=== PATIENT | female | born 1975 | race Caucasian/White ===

== ENCOUNTER 2019-11-12 16:08 | Emergency (ER) | payer MEDICAID, SELFPAY ==
[2019-11-12 16:14] VITALS: BP 151/83; PULSE 92; RESP 16; TEMP 36.7; O2SAT 100; BMI 18.6
[2019-11-12 16:20] VITALS: BP 121/81; PULSE 87; RESP 18; O2SAT 100
--- NOTE | 2019-11-12 16:30 | CTR_ITS ---
PROCEDURE INFORMATION: Exam: CT Abdomen And Pelvis With Contrast Exam date and time: 11/12/2019 4:33 PM Age: 44 years old Clinical indication: Abdominal pain; Localized; Lower; Prior surgery; Surgery type: Ileostomy; Additional info: Abd pain TECHNIQUE: Imaging protocol: Computed tomography of the abdomen and pelvis with intravenous contrast. Axial, coronal and sagittal reformatted images were created and reviewed. Radiation optimization: All CT scans at this facility use at least one of these dose optimization techniques: automated exposure control; mA and/or kV adjustment per patient size (includes targeted exams where dose is matched to clinical indication); or iterative reconstruction. Contrast material: OMNI 300; Contrast volume: 75 ml; Contrast route: IV; COMPARISON: CT abdomen pelvis w con* [id number] 11/07/2018 10:12 AM RADIATION DOSE METRICS: Total DLP: 468.34 mGy-cm FINDINGS: Lungs: Mild dependent atelectatic change at the lung bases. Liver: Mild hepatomegaly. Gallbladder and bile ducts: No radiodense gallstones. No biliary ductal dilatation. Pancreas: Unremarkable. Spleen: Unremarkable. Adrenals: Unremarkable. Kidneys and ureters: Subcentimeter low-density renal lesions bilaterally, measuring up to 4 mm, too small to characterize. Nonobstructing bilateral renal calculi. No hydronephrosis. Stomach and bowel: Evidence of prior partial colectomy with a right lower quadrant ileostomy and left lower quadrant mucous fistula. Appendix: Surgically absent. Intraperitoneal space: Indistinct adnexa and small nonspecific free pelvic fluid. No organized collection. No free air. Vasculature: Mild atherosclerotic disease. No aneurysm or dissection. Lymph nodes: No pathologically enlarged lymph nodes. Bladder: Mild circumferential urinary bladder wall thickening, likely secondary to underdistention. Reproductive: Unremarkable. Bones/joints: No acute osseous abnormality. Mild degenerative changes. Soft tissues: Diastasis of the rectus abdominus musculature with a large ventral abdominal wall defect. CT/CT abdomen pelvis w con* [id number] IMPRESSION: 1. Indistinct adnexa and small nonspecific free pelvic fluid. If there is clinical concern for acute gynecologic pathology, pelvic ultrasound would provide a more sensitive evaluation. 2. Mild circumferential urinary bladder wall thickening, likely secondary to underdistention. Correlate with urinalysis to exclude cystitis. 3. Additional findings, as above. COMMENTS: Consistent with the [employer]'s Incidental Findings Committee white paper (J Am Maxine Radiol 2018): Any incidental renal lesion less than 1.0 cm or classified as too small to characterize, or any incidental cystic renal lesion characterized as simple-appearing, is likely benign. No follow-up imaging is recommended for these lesions per consensus recommendations based on imaging criteria. Radiation Dose CTDIVOL = (mGy): DLP = 468.34 (mGy-cm)
[2019-11-12] MEDS: iohexol 300 mg/mL 100 mL Btl IV (16:50)
[2019-11-12] MEDS: sodium chloride 0.9% 1,000 ML 999 ML IV (17:02)
[2019-11-12] MEDS: ondansetron 2 mg/ML SDV 2 mL 4 MG IVP (17:05)
[2019-11-12 17:06] VITALS: RESP 18; O2SAT 99
[2019-11-12 17:06] LABS: Basophils # 0.1 10^3/uL (0.0-0.1); Basophils % 0.6 %; Eosinophils # 0.2 10^3/uL (0.0-0.8); Eosinophils % 2.7 %; Hemoglobin 12.6 g/dL (11.5-15.3); Lymphocytes # 2.2 10^3/uL (0.8-4.8); Lymphocytes % 25.7 %; Mean Corpuscular HGB Conc 31.5 g/dL (30.0-36.0); Mean Corpuscular Hemoglobin 31.7 pg (28.0-34.0); Mean Corpuscular Volume 100.5 fL (81-99); Mean Platelet Volume 11.7 fL (7.4-10.4); Monocytes # 0.4 10^3/uL (0.2-0.9); Neutrophils # 5.5 10^3/uL (1.8-7.7); Neutrophils % 65.8 %; Nucleated Red Blood Cells % 0 %; Platelet Count 118 10^3/cmm (130-400); Red Blood Count 3.98 10^6/uL (4.1-5.3); Red Cell Distribution Width 15.3 % (12.1-15.1); White Blood Count 8.4 10^3/uL (4.0-10.0)
[2019-11-12] MEDS: morphine 4 mg/mL SDV 1 mL IVP ×2 (17:06→18:51)
--- NOTE | 2019-11-12 17:20 | US_ITS ---
WS: [id number] TRANSABDOMINAL PELVIC ULTRASOUND HISTORY: free pelvic fluid COMPARISON: None available. Very limited evaluation of the pelvic structures. There is a moderate amount of free fluid in the pel vis which is mildly complex. No measurements have been performed. The adnexa poorly imaged. There is no fluid in Morison's pouch. US/US pelvic limited [id number] IMPRESSION: Moderate amount of complex free fluid in the pelvis. May be hemorrhagic or infe ctious.
[2019-11-12 17:24] LABS: Add Urine Microscopic? NO
[2019-11-12 17:25] LABS: Bilirubin Urine Neg (NEGATIVE); Blood Urine Neg (Negative); Glucose Urine UA Norm (Normal); Ketones Urine Negative (Negative); Leukocyte Esterase Urine Negative (Negative); Nitrate Urine Negative (Negative); Protein Urine Neg (Negative); Urine Appearance Clear (CLEAR); Urine Color Straw (Yellow); Urobilinogen Urine Norm (Negative); pH Urine 5 (5-7)
[2019-11-12 17:30] LABS: Alanine Aminotransferase 10 U/L (0-33); Albumin Level 3.8 g/dL (3.5-5.2); Alkaline Phosphatase 84 IU/L (35-105); Anion Gap 14.7 (5-19); Blood Urea Nitrogen 7 mg/dL (6-20); Calcium 8.6 mg/dL (8.5-10.5); Carbon Dioxide 24 mmol/L (22-29); Chloride 99 mmol/L (98-107); Glomerular Filtration Rate 108.1 mL/min (90-130); Glucose 131 mg/dL (65-115); Lipase 19 U/L (13-60); Osmolality Calculated 276 mOsm/kg (285-295); Potassium 3.7 mmol/L (3.5-5.1); Sodium 134 mmol/L (136-145); Total Bilirubin 0.2 mg/dL (0.15-1.2); Total Protein 5.8 g/dL (6.6-8.7)
[2019-11-12 17:31] LABS: Aspartate Amino Transferase 16 U/L (0-32)
--- NOTE | 2019-11-12 17:34 | W.ED.ABDPA2 ---
Documented by User: Brian Adams DO 11/13/19 06:13 HPI - Abdominal Pain General: Chief Complaint: Abdominal Pain Stated Complaint: ABD PAIN Time Seen by Provider: 11/12/19 16:15 History of Present Illness: HPI narrative: 44-year-old female female who comes in complaining of abdominal pain that began last night. Patient has a history of Crohn's had multiple abdominal surgeries she currently has an ileostomy when she has noticed a decreased output although she has not had any significant bloody output she will occasionally get small streaks of blood from the edges of the stoma that has not changed. She also has a open wound in the left lower quadrant she states as a result of her previous surgeries that has not healed she just keeps it covered does not leak any fecal matter but it does ooze serous drainage it has not had any purulent drainage. She is complaining of generalized abdominal pain and cramping she has a large area in the center of her abdomen where it appears her incision is dehisced in the past and healed by secondary intent. She complains of nausea with no vomiting. She denies any dysuria urgency or frequency or hematuria. She has no cough no fever. Associated Symptoms: Denies bloating, chills, coffee ground emesis, constipation, diarrhea, dysuria, fever(s), hematochezia, hematemesis, melena, nausea and vomiting Review of Systems Const: Denies: fever(s), chills, body aches, change in appetite, fatigue or malaise ENMT: Denies: throat pain, ear or mastoid pain, nasal discharge or nasal congestion Card: Denies: chest pain, edema, dyspnea on exertion or orthopnea Resp: Denies: dyspnea, productive cough or non-productive cough GI: Denies: abdominal pain, nausea, vomiting, hematemesis, coffee ground emesis, diarrhea, constipation, bloating, hematochezia or melena : Denies: flank pain, difficulty voiding, dysuria, urinary frequency or urinary urgency Skin/Breast: Denies: rash or pruritus PFSH ED PFSH: Medical History Bartholin's cyst Crohn's disease Ileostomy in place Surgical History History of appendectomy Hx of tonsillectomy Social History Smoking and tobacco status: current every day smoker Physical Exam Const: COMMON NORMALS: no acute distress GENERAL APPEARANCE: cooperative and comfortable ORIENTATION/CONSCIOUSNESS: Yes awake, Yes oriented to person, Yes oriented to place and Yes oriented to time HENMT: COMMON NORMALS: normocephalic, atraumatic, hearing grossly normal bilaterally, external ears normal, EAC's normal, TM's normal bilaterally, Normal nasal mucous membranes and turbinates present, moist oral mucous membranes and oropharynx normal HEAD & SCALP: normocephalic and atraumatic NOSE: Normal nasal mucous membranes and turbinates present EXTERNAL EAR: Yes external ears normal EXTERNAL AUDITORY CANAL: EAC's normal TYMPANIC MEMBRANE: TM's normal bilaterally Eye: COMMON NORMALS: Equal, round and reactive pupils present, EOMs intact bilaterally, conjunctivae normal and no scleral icterus CONJUNCTIVA: Yes conjunctivae normal PUPIL: Yes Equal, round and reactive pupils present Neck/C-Spine: COMMON NORMALS: full ROM, no lymphadenopathy, supple and no JVD Lymph: LYMPHATIC: no lymphadenopathy noted and no lymphedema noted Resp: COMMON NORMALS: normal respiratory effort, No retractions, No use of accessory muscles and clear to auscultation bilaterally AUSCULTATION: clear to auscultation bilaterally Cardio: COMMON NORMALS: no JVD, regular rate, regular rhythm and No murmurs present (Cardio) RATE: regular rate RHYTHM: regular rhythm GI: COMMON NORMALS: Soft to palpation and No hepatosplenomegaly present AUSCULTATION: Yes normoactive bowel sounds PALPATION: Yes Soft to palpation, Yes Tenderness to palpation present (GI), No Guarding due to palpation present (GI), No Rigid due to palpation, Yes No hepatosplenomegaly present, No Hernia present, No Palpable mass present, No Ascites present, No Rebound tenderness present and Yes Other GI palpation findings present (Scarring from what appears to be a dehisced midline abdominal incision that healed by secondary intent ileostomy in the right lower quadrant has no hematochezia or melena in the ostomy bag. In the left lower quadrant there is an open wound approximately 1 cm in diameter there is a bandage over it with some serous drainage no purulent drainage no pain with palpation of that area and cannot express any purulence with palpation) : EXTERNAL FEMALE EXAM: No Hernia present Extremity: COMMON NORMALS: normal to inspection, capillary refill normal, no clubbing, cyanosis or edema, no calf tenderness and no pedal edema Neuro: SENSORIUM/ORIENTATION: Yes oriented to person, Yes oriented to place and Yes oriented to time Skin: COMMON NORMALS: no rashes or lesions noted GENERAL SKIN EXAM: no rashes or lesions noted Course Vital Signs: Vital signs: Vital Signs Temperature 98.1 F 11/12/19 16:14 Pulse Rate 76 11/12/19 19:47 Respiratory Rate 16 11/12/19 19:47 Blood Pressure 89/64 11/12/19 19:47 Pulse Oximetry 96 11/12/19 19:47 MDM - Abdominal Pain MDM Narrative: Medical decision making narrative: Patient initially seen history and physical done initial labs ordered as well as pain medications and nausea medications. CT showed small amount of free fluid a ultrasound has been ordered care turned over to Dr. Potts at change of shift see his notes for final assessment and disposition Lab Data: Labs: Lab Results 11/12/19 11/12/19 11/12/19 Range/Units 16:57 16:57 17:03 WBC 8.4 (4.0-10.0) 10^3/ uL RBC 3.98 L (4.1-5.3) 10^6/u L Hgb 12.6 (11.5-15.3) g/dL Hct 40.0 (37.0-47.0) % MCV 100.5 H (81-99) fL MCH 31.7 (28.0-34.0) pg MCHC 31.5 (30.0-36.0) g/dL RDW 15.3 H (12.1-15.1) % Plt Count 118 L (130-400) 10^3/c mm MPV 11.7 H (7.4-10.4) fL Neut % (Auto) 65.8 % Lymph % (Auto) 25.7 % [place] % (Auto) 5.0 % Eos % (Auto) 2.7 % Baso % (Auto) 0.6 % Neut # (Auto) 5.5 (1.8-7.7) 10^3/u L Lymph # (Auto) 2.2 (0.8-4.8) 10^3/u L [place] # (Auto) 0.4 (0.2-0.9) 10^3/u L Eos # (Auto) 0.2 (0.0-0.8) 10^3/u L Baso # (Auto) 0.1 (0.0-0.1) 10^3/u L Nucleated RBC % (a uto) 0 % Nucleated RBCs # 0.0 /100WBC Sodium 134 L (136-145) mmol/L Potassium 3.7 (3.5-5.1) mmol/L Chloride 99 (98-107) mmol/L Carbon Dioxide 24 (22-29) mmol/L Anion Gap 14.7 (5-19) BUN 7 (6-20) mg/dL Creatinine 0.6 (0.5-0.9) mg/dL GFR Calculation 108.1 (90-130) mL/min Glucose 131 H (65-115) mg/dL Calculated Osmolal ity 276 L (285-295) mOsm/k g Calcium 8.6 (8.5-10.5) mg/dL Total Bilirubin 0.2 (0.15-1.2) mg/dL AST 16 (0-32) U/L ALT 10 (0-33) U/L Alkaline Phosphata se 84 (35-105) IU/L Total Protein 5.8 L (6.6-8.7) g/dL Albumin 3.8 (3.5-5.2) g/dL Globulin 2.0 (1.3-4.6) g/dL Lipase 19 (13-60) U/L Urine Color Straw (Yellow) Urine Appearance Clear (CLEAR) Urine pH 5 (5-7) Ur Specific Gravit y 1.010 (1.005-1.030) Urine Protein Neg (Negative) Urine Glucose (UA) Norm (Normal) Urine Ketones Negative (Negative) Urine Blood Neg (Negative) Urine Nitrate Negative (Negative) Urine Bilirubin Neg (NEGATIVE) Urine Urobilinogen Norm (Negative) mg/dL Ur Leukocyte Michelle ase Negative (Negative) Discharge Plan Discharge Patient Disposition: Home, Self-Care Clinical Impression: Abdominal pain Qualifiers: Abdominal location: generalized Qualified Code(s): R10.84 - Generalized abdominal pain Condition: Stable Prescriptions: [place] 5-325 mg tablet 1 tab PO Q6H PRN (Reason: pain) Qty: 14 RF: 0 Zofran 4 mg tablet 4 mg PO QID PRN (Reason: nausea and vomiting) Qty: 14 RF: 0 prednisone 50 mg tablet 50 mg PO DAILY Qty: 5 RF: 0 No Action clonazepam 0.5 mg Tablet 0.5 mg PO BID PRN (Reason: Anxiety) RF: 0 Tylenol Extra Strength 500 mg Tablet 1,000 mg PO PRN RF: 0 ProAir HFA 90 mcg/actuation Hfa Aerosol Inhaler 2 puff INHALATION QID PRN (Reason: Shortness Of Breath) RF: 0 Lexapro 20 mg Tablet 20 mg PO DAILY RF: 0 Multi Vitamin 9 mg iron/15 mL Liquid See Rx Instructions .ROUTE .COMPLEX RF: 0 Discharge Orders: Discharge Order (Routine); Ordered 11/12/19 Ordered By: Yfn Potts Referrals: Cesilia Schneider MD [Primary Care Provider] - Discharge Diet: Advance as tolerated Discharge Activity: Resume usual activity Patient Instructions: Abdominal Pain (ED) Discharge Date/Time: 11/12/19 19:49 Coding Level of Care Code ED [employer] for Chg Fwd Documented by User: Yfn Potts MD 11/12/19 19:38 HPI - Abdominal Pain General: Chief Complaint: Abdominal Pain Stated Complaint: ABD PAIN Time Seen by Provider: 11/12/19 16:15 [facility] ED PFSH: Medical History Bartholin's cyst Crohn's disease Ileostomy in place Surgical History History of appendectomy Hx of tonsillectomy Social History Smoking and tobacco status: current every day smoker Course Vital Signs: Vital signs: Vital Signs Temperature 98.1 F 11/12/19 16:14 Pulse Rate 76 11/12/19 19:47 Respiratory Rate 16 11/12/19 19:47 Blood Pressure 89/64 11/12/19 19:47 Pulse Oximetry 96 11/12/19 19:47 MDM - Abdominal Pain MDM Narrative: Medical decision making narrative: I took patient over from Dr. Benavides to follow-up with a pelvic ultrasound. Ultrasound here showed slight free fluid no other findings. Her CT scan showed no acute findings besides the slight free fluid. Her pain is much improved abdominal exam at discharge is benign. With blood work here is normal. She does have a history of Crohn's we will place her on a steroid burst along with pain meds. She is to follow-up with her GI physician as soon as possible and return to the ER if worsening. Lab Data: Labs: Lab Results 11/12/19 11/12/19 11/12/19 Range/Units 16:57 16:57 17:03 WBC 8.4 (4.0-10.0) 10^3/ uL RBC 3.98 L (4.1-5.3) 10^6/u L Hgb 12.6 (11.5-15.3) g/dL Hct 40.0 (37.0-47.0) % MCV 100.5 H (81-99) fL MCH 31.7 (28.0-34.0) pg MCHC 31.5 (30.0-36.0) g/dL RDW 15.3 H (12.1-15.1) % Plt Count 118 L (130-400) 10^3/c mm MPV 11.7 H (7.4-10.4) fL Neut % (Auto) 65.8 % Lymph % (Auto) 25.7 % [place] % (Auto) 5.0 % Eos % (Auto) 2.7 % Baso % (Auto) 0.6 % Neut # (Auto) 5.5 (1.8-7.7) 10^3/u L Lymph # (Auto) 2.2 (0.8-4.8) 10^3/u L [place] # (Auto) 0.4 (0.2-0.9) 10^3/u L Eos # (Auto) 0.2 (0.0-0.8) 10^3/u L Baso # (Auto) 0.1 (0.0-0.1) 10^3/u L Nucleated RBC % (a uto) 0 % Nucleated RBCs # 0.0 /100WBC Sodium 134 L (136-145) mmol/L Potassium 3.7 (3.5-5.1) mmol/L Chloride 99 (98-107) mmol/L Carbon Dioxide 24 (22-29) mmol/L Anion Gap 14.7 (5-19) BUN 7 (6-20) mg/dL Creatinine 0.6 (0.5-0.9) mg/dL GFR Calculation 108.1 (90-130) mL/min Glucose 131 H (65-115) mg/dL Calculated Osmolal ity 276 L (285-295) mOsm/k g Calcium 8.6 (8.5-10.5) mg/dL Total Bilirubin 0.2 (0.15-1.2) mg/dL AST 16 (0-32) U/L ALT 10 (0-33) U/L Alkaline Phosphata se 84 (35-105) IU/L Total Protein 5.8 L (6.6-8.7) g/dL Albumin 3.8 (3.5-5.2) g/dL Globulin 2.0 (1.3-4.6) g/dL Lipase 19 (13-60) U/L Urine Color Straw (Yellow) Urine Appearance Clear (CLEAR) Urine pH 5 (5-7) Ur Specific Gravit y 1.010 (1.005-1.030) Urine Protein Neg (Negative) Urine Glucose (UA) Norm (Normal) Urine Ketones Negative (Negative) Urine Blood Neg (Negative) Urine Nitrate Negative (Negative) Urine Bilirubin Neg (NEGATIVE) Urine Urobilinogen Norm (Negative) mg/dL Ur Leukocyte Michelle ase Negative (Negative) Imaging Data ^: CT Abd/Pel: Attestation: I personally reviewed and interpreted this imaging study as follows: Radiologist's impression: [address] [address] [address] Scan Report Signed Patient: Stephani Fitzgerald Unit #: [id number] : 1975 Age/Sex: 44 / F ADM Date: 11/12/19 Loc: ER Room/Bed: Attending Dr: Ordering Provider/Ordering MD: Brian Adams DO Date of Service: 11/12/19 Procedure(s): CT abdomen pelvis w con* [id number] Accession Number(s): [id number] Report Number: [id number] PROCEDURE INFORMATION: Exam: CT Abdomen And Pelvis With Contrast Exam date and time: 11/12/2019 4:33 PM Age: 44 years old Clinical indication: Abdominal pain; Localized; Lower; Prior surgery; Surgery type: Ileostomy; Additional info: Abd pain TECHNIQUE: Imaging protocol: Computed tomography of the abdomen and pelvis with intravenous contrast. Axial, coronal and sagittal reformatted images were created and reviewed. Radiation optimization: All CT scans at this facility use at least one of these dose optimization techniques: automated exposure control; mA and/or kV adjustment per patient size (includes targeted exams where dose is matched to clinical indication); or iterative reconstruction. Contrast material: OMNI 300; Contrast volume: 75 ml; Contrast route: IV; COMPARISON: CT abdomen pelvis w con* [id number] 11/07/2018 10:12 AM RADIATION DOSE METRICS: Total DLP: 468.34 mGy-cm FINDINGS: Lungs: Mild dependent atelectatic change at the lung bases. Liver: Mild hepatomegaly. Gallbladder and bile ducts: No radiodense gallstones. No biliary ductal dilatation. Pancreas: Unremarkable. Spleen: Unremarkable. Adrenals: Unremarkable. Kidneys and ureters: Subcentimeter low-density renal lesions bilaterally, measuring up to 4 mm, too small to characterize. Nonobstructing bilateral renal calculi. No hydronephrosis. Stomach and bowel: Evidence of prior partial colectomy with a right lower quadrant ileostomy and left lower quadrant mucous fistula. Appendix: Surgically absent. Intraperitoneal space: Indistinct adnexa and small nonspecific free pelvic fluid. No organized collection. No free air. Vasculature: Mild atherosclerotic disease. No aneurysm or dissection. Lymph nodes: No pathologically enlarged lymph nodes. Bladder: Mild circumferential urinary bladder wall thickening, likely secondary to underdistention. Reproductive: Unremarkable. Bones/joints: No acute osseous abnormality. Mild degenerative changes. Soft tissues: Diastasis of the rectus abdominus musculature with a large ventral abdominal wall defect. CT/CT abdomen pelvis w con* [id number] IMPRESSION: 1. Indistinct adnexa and small nonspecific free pelvic fluid. If there is clinical concern for acute gynecologic pathology, pelvic ultrasound would provide a more sensitive evaluation. 2. Mild circumferential urinary bladder wall thickening, likely secondary to underdistention. Correlate with urinalysis to exclude cystitis. 3. Additional findings, as above. Discharge Plan Discharge Patient Disposition: Home, Self-Care Clinical Impression: Abdominal pain Qualifiers: Abdominal location: generalized Qualified Code(s): R10.84 - Generalized abdominal pain Condition: Stable Prescriptions: [place] 5-325 mg tablet 1 tab PO Q6H PRN (Reason: pain) Qty: 14 RF: 0 Zofran 4 mg tablet 4 mg PO QID PRN (Reason: nausea and vomiting) Qty: 14 RF: 0 prednisone 50 mg tablet 50 mg PO DAILY Qty: 5 RF: 0 No Action clonazepam 0.5 mg Tablet 0.5 mg PO BID PRN (Reason: Anxiety) RF: 0 Tylenol Extra Strength 500 mg Tablet 1,000 mg PO PRN RF: 0 ProAir HFA 90 mcg/actuation Hfa Aerosol Inhaler 2 puff INHALATION QID PRN (Reason: Shortness Of Breath) RF: 0 Lexapro 20 mg Tablet 20 mg PO DAILY RF: 0 Multi Vitamin 9 mg iron/15 mL Liquid See Rx Instructions .ROUTE .COMPLEX RF: 0 Discharge Orders: Discharge Order (Routine); Ordered 11/12/19 Ordered By: Yfn Potts Referrals: Cesilia Schneider MD [Primary Care Provider] - Discharge Diet: Advance as tolerated Discharge Activity: Resume usual activity Patient Instructions: Abdominal Pain (ED) Discharge Date/Time: 11/12/19 19:49 Coding Level of Care Code ED [employer] Manager for Chg Yadi
[2019-11-12 18:51] VITALS: RESP 16
[2019-11-12 19:47] VITALS: BP 89/64; PULSE 76; RESP 16; O2SAT 96
== END 2019-11-12 19:49 | disposition home or self-care (01) ==
PROVIDERS: Family Medicine; Emergency Provider Emergency Medicine; PCP Internal Medicine
DX: R10.84 Generalized abdominal pain (principal); F17.210 Nicotine dependence, cigarettes, uncomplicated
CPT/HCPCS: 12345; 74177; 76857; 80053; 81003; 83690; 85025; 96361; 96374; 96375; 96376; 99283; J2270; J2405; J7030; Q9967

== ENCOUNTER 2020-04-20 16:50 | Emergency (ER) | payer MEDICAID, SELFPAY ==
[2020-04-20 17:16] VITALS: BP 90/53; PULSE 75; RESP 16; TEMP 36.4; O2SAT 95; BMI 21.2
--- NOTE | 2020-04-20 19:31 | W.ED.ABDPA2 ---
HPI - Abdominal Pain General: Chief Complaint: Abdominal Pain Stated Complaint: INFECTED ILEOSTOMY Time Seen by Provider: 04/20/20 19:21 Source: patient and EMS Mode of arrival: EMS Limitations: no limitations History of Present Illness: HPI narrative: 44-year-old female who has a history of Crohn's disease and has a ostomy. She is also had a chronic wound to her left lower abdomen since 2016. States today she started having a slight drainage to it. She denies any fever. Denies any worsening or improving factors. Denies any fever. Denies any vomiting. Associated Symptoms: Denies chills, diarrhea, dysuria, fever(s), nausea and vomiting Review of Systems Const: Denies: fever(s), chills, body aches or change in appetite Eyes: Denies: blurry vision or eye discomfort ENMT: Denies: throat pain or dental pain Card: Denies: chest pain Resp: Denies: dyspnea GI: Denies: abdominal pain, nausea, vomiting or diarrhea : Denies: dysuria Musc: Denies: neck pain or back pain Skin/Breast: Denies: rash Neuro: Denies: headache(s) Psych: Denies: depression Rc/Lymph: Denies: easy bruising All/Imm: Denies: urticaria PFSH ED PFSH: Medical History (Updated 04/20/20 @ 20:16 by Yfn Potts MD) Bartholin's cyst Crohn's disease Ileostomy in place Surgical History History of appendectomy Hx of tonsillectomy Social History Smoking and tobacco status: current every day smoker Physical Exam Const: COMMON NORMALS: no acute distress, patient oriented x3 and healthy appearing HENMT: COMMON NORMALS: normocephalic and atraumatic HEAD & SCALP: normocephalic and atraumatic Eye: COMMON NORMALS: Equal, round and reactive pupils present and EOMs intact bilaterally PUPIL: Yes Equal, round and reactive pupils present Neck/C-Spine: COMMON NORMALS: full ROM and supple Chest: COMMONS NORMALS: normal inspection of the chest and normal palpation of entire chest wall Resp: COMMON NORMALS: normal respiratory effort, No retractions, No use of accessory muscles and clear to auscultation bilaterally AUSCULTATION: clear to auscultation bilaterally Cardio: COMMON NORMALS: regular rate, regular rhythm and No murmurs present (Cardio) RATE: regular rate RHYTHM: regular rhythm GI: COMMON NORMALS: Soft to palpation, non-tender and no masses PALPATION: Yes Soft to palpation OTHER: Small nickel size wound to left lower abdomen with a very slight drainage to it. No foul smell at this time. No erythema Extremity: COMMON NORMALS: normal to inspection and full ROM Neuro: COMMON NORMALS: patient oriented x3, moves all extremities and no focal motor deficits Psych: COMMON NORMALS: mental status grossly normal, Normal thought process present and cooperative THOUGHT PROCESS: Normal thought process present Skin: COMMON NORMALS: no rashes or lesions noted and no wounds GENERAL SKIN EXAM: no rashes or lesions noted Course Vital Signs: Vital signs: Vital Signs Temperature 97.9 F 04/20/20 19:39 Pulse Rate 75 04/20/20 17:16 Respiratory Rate 18 04/20/20 19:39 Blood Pressure 124/73 04/20/20 19:39 Pulse Oximetry 99 04/20/20 19:39 MDM - Abdominal Pain MDM Narrative: Medical decision making narrative: Stephani presents here with a chronic abdominal wound does have some slight drainage. Patient has no signs of any serious infection at this time. Patient's blood count here is normal. We will place her on Bactrim and she is to follow-up with wound care. She is to return if worsening. She understands and agrees to plan. Lab Data: Labs: Lab Results 04/20/20 04/20/20 04/20/20 Range/Units 19:47 19:47 19:47 WBC 9.3 (4.0-10.0) 10^3/ uL RBC 4.79 (4.1-5.3) 10^6/u L Hgb 15.4 H (11.5-15.3) g/dL Hct 47.6 H (37.0-47.0) % MCV 99.4 H (81-99) fL MCH 32.2 (28.0-34.0) pg MCHC 32.4 (30.0-36.0) g/dL RDW 13.3 (12.1-15.1) % Plt Count 172 (130-400) 10^3/c mm MPV 10.9 H (7.4-10.4) fL Neut % (Auto) 78.8 % Lymph % (Auto) 18.6 % [place] % (Auto) 1.8 % Eos % (Auto) 0.1 % Baso % (Auto) 0.3 % Neut # (Auto) 7.30 (1.8-7.7) 10^3/u L Lymph # (Auto) 1.7 (0.8-4.8) 10^3/u L [place] # (Auto) 0.2 (0.2-0.9) 10^3/u L Eos # (Auto) 0.0 (0.0-0.8) 10^3/u L Baso # (Auto) 0.0 (0.0-0.1) 10^3/u L Nucleated RBC % (a uto) 0 % Nucleated RBCs # 0.0 /100WBC Sodium 143 (136-145) mmol/L Potassium 3.9 (3.5-5.1) mmol/L Chloride 106 (98-107) mmol/L Carbon Dioxide 23 (22-29) mmol/L Anion Gap 17.9 (5-19) BUN 9 (6-20) mg/dL Creatinine 0.6 (0.5-0.9) mg/dL GFR Calculation 108.1 (90-130) mL/min Glucose 92 (65-115) mg/dL Calculated Osmolal ity 294 (285-295) mOsm/k g Calcium 9.8 (8.5-10.5) mg/dL Total Bilirubin 0.2 (0.15-1.2) mg/dL AST 21 (0-32) U/L ALT 15 (0-33) U/L Alkaline Phosphata se 113 H (35-105) IU/L Total Protein 7.6 (6.6-8.7) g/dL Albumin 4.7 (3.5-5.2) g/dL Globulin 2.9 (1.3-4.6) g/dL HCG, Qual Negative (Negative) Discharge Plan Discharge Patient Disposition: Home Clinical Impression: Open abdominal wall wound Qualifiers: Encounter type: initial encounter Qualified Code(s): S31.109A - Unspecified open wound of abdominal wall, unspecified quadrant without penetration into peritoneal cavity, initial encounter Condition: Stable Prescriptions: New Bactrim DS 800-160 mg tablet 1 tab PO BID 10 Days Qty: 20 RF: 0 No Action clonazepam 0.5 mg Tablet 0.5 mg PO BID PRN (Reason: Anxiety) RF: 0 Tylenol Extra Strength 500 mg Tablet 1,000 mg PO PRN RF: 0 ProAir HFA 90 mcg/actuation Hfa Aerosol Inhaler 2 puff INHALATION QID PRN (Reason: Shortness Of Breath) RF: 0 Lexapro 20 mg Tablet 20 mg PO DAILY RF: 0 Multi Vitamin 9 mg iron/15 mL Liquid See Rx Instructions .ROUTE .COMPLEX RF: 0 [place] 5-325 mg tablet 1 tab PO Q6H PRN (Reason: pain) Qty: 14 RF: 0 Zofran 4 mg tablet 4 mg PO QID PRN (Reason: nausea and vomiting) Qty: 14 RF: 0 prednisone 50 mg tablet 50 mg PO DAILY Qty: 5 RF: 0 Discharge Orders: Discharge Order (Routine); Ordered 04/20/20 Ordered By: Yfn Potts Referrals: Cesilia Schneider MD [Primary Care Provider] - 1-3 days Discharge Diet: Advance as tolerated Discharge Activity: Resume usual activity Patient Instructions: Wound Care (General) Coding Level of Care Code ED Overhead Cleaner for Chg Fwd Exam Comprehensive
[2020-04-20 19:39] VITALS: BP 124/73; RESP 18; TEMP 36.6; O2SAT 99
[2020-04-20] MEDS: sodium chloride 0.9% 1,000 ML 999 ML IV (19:51)
[2020-04-20 19:52] LABS: Basophils % 0.3 %; Eosinophils % 0.1 %; Hematocrit 47.6 % (37.0-47.0); Hemoglobin 15.4 g/dL (11.5-15.3); Lymphocytes # 1.7 10^3/uL (0.8-4.8); Lymphocytes % 18.6 %; Mean Corpuscular HGB Conc 32.4 g/dL (30.0-36.0); Mean Corpuscular Hemoglobin 32.2 pg (28.0-34.0); Mean Corpuscular Volume 99.4 fL (81-99); Mean Platelet Volume 10.9 fL (7.4-10.4); Monocytes # 0.2 10^3/uL (0.2-0.9); Monocytes % 1.8 %; Neutrophils % 78.8 %; Nucleated Red Blood Cells % 0 %; Platelet Count 172 10^3/cmm (130-400); Red Blood Count 4.79 10^6/uL (4.1-5.3); Red Cell Distribution Width 13.3 % (12.1-15.1); White Blood Count 9.3 10^3/uL (4.0-10.0)
[2020-04-20 20:12] LABS: Alanine Aminotransferase 15 U/L (0-33); Albumin Level 4.7 g/dL (3.5-5.2); Alkaline Phosphatase 113 IU/L (35-105); Anion Gap 17.9 (5-19); Aspartate Amino Transferase 21 U/L (0-32); Blood Urea Nitrogen 9 mg/dL (6-20); Calcium 9.8 mg/dL (8.5-10.5); Carbon Dioxide 23 mmol/L (22-29); Chloride 106 mmol/L (98-107); Creatinine Clr Calc Pharmacy 95.5295; Globulin 2.9 g/dL (1.3-4.6); Glomerular Filtration Rate 108.1 mL/min (90-130); Glucose 92 mg/dL (65-115); Osmolality Calculated 294 mOsm/kg (285-295); Potassium 3.9 mmol/L (3.5-5.1); Sodium 143 mmol/L (136-145); Total Bilirubin 0.2 mg/dL (0.15-1.2); Total Protein 7.6 g/dL (6.6-8.7)
[2020-04-20 20:15] LABS: HCG, Serum Qual Negative (Negative)
[2020-04-20] MEDS: sulfamethoxazole-trimeth DS 160-800 mg Tablet 1 TAB PO (20:33)
[2020-04-20 20:34] VITALS: RESP 18; O2SAT 99
[2020-04-20] MEDS: morphine 4 mg/mL SDV 1 mL IVP (20:34)
[2020-04-20 20:48] VITALS: BP 94/63; PULSE 80; RESP 17; O2SAT 98
--- NOTE | 2020-04-21 09:01 | DCPLANNER ---
talent acquisition project manager had message to schedule a follow up appointment for patient with Wound Care. talent acquisition project manager called Wound Care, spoke with Debora, a follow up appointment was scheduled for Monday, April 27, 2020 at 8:30 with Krystle. talent acquisition project manager called patient to give patient appointment information. talent acquisition project manager was unable to speak with patient at this time, a voicemail was left for patient to return rehabilitation caseworker phone call for appointment information. talent acquisition project manager will continue to try and contact patient with appointment information.
--- NOTE | 2020-04-30 15:36 | DCPLANNER ---
Patient had a follow up appointment scheduled for 04.27.20 with Wound Care - appointment was rescheduled.
== END 2020-04-20 20:48 | disposition home or self-care (01) ==
PROVIDERS: Physician Assistant; Emergency Provider Emergency Medicine; PCP Internal Medicine
DX: S31.109A Unspecified open wound of abdominal wall, unspecified quadrant without penetration into peritoneal cavity, initial encounter (principal); F17.210 Nicotine dependence, cigarettes, uncomplicated; Z93.2 Ileostomy status; X58.XXXA Exposure to other specified factors, initial encounter
CPT/HCPCS: 12345; 80053; 84703; 85025; 96361; 96374; 96375; 99283; J2270; J7030

== ENCOUNTER 2020-11-20 11:43 | Inpatient (IN) | payer MEDICAID, SELFPAY ==
[2020-11-20 11:54] VITALS: BP 132/99; PULSE 138; RESP 18; TEMP 37; O2SAT 96; BMI 23.2
--- NOTE | 2020-11-20 12:08 | CT_ITS ---
WS: [id number] CT ABDOMEN PELVIS TECHNIQUE: Contrast-enhanced CT of the abdomen and pelvis with coronal and sagittal reformatted image s. CLINICAL INFORMATION: ulcerative colitis with ostomy. chronic abd pain COMPARISON: CT November 12, 2019 DLP: 985.[address] scans at [facility] use at least one of these dose optimization techniques: automat ed exposure control; mA and/or kV adjustment per patient size (includes targeted exams where dose is matched to clinical indication); or iterative reconstruction. FINDINGS: Normal liver. Normal portal vein and splenic vein. Normal spleen. Normal GE junction. Lung bases are well aerated. Normal pancreas. Adrenal glands are normal. Normal renal parenchymal enhancement. No hy dronephrosis. Tiny bilateral renal lesions likely renal cysts but too small to characterize. Urine distended bladder. Small amount of free fluid in the pelvis. Bilateral ovarian cysts. Lobulated left ovary and cyst measures 1.5 cm. 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 No evidence of small bowel obstruction. Prior colectomy. Right lower quadrant ileostomy appears patent. No evidence of obstruction. Left lowe r quadrant colostomy. No evidence of obstruction. CT/CT abdomen pelvis w con* [id number] IMPRESSION: 1. No evidence of small or large bowel obstruction. 2. Normal-appearing ileostomy in the right lower quadrant colostomy in the lef t lower quadrant. No evidence of obstruction. 3. Prior colectomy. 4. Small amount of free fluid in the pelvis. Small bilateral ovarian cysts. La rgest in the left measures 1.5 cm. 5. Urine distended bladder. 6. Rectus muscle diastases with ectatic anterior abdominal wall. This is uncha nged from previous. 7. No other significant findings.
--- NOTE | 2020-11-20 12:13 | ED_ITS ---
HPI - Psych General: Chief Complaint: Psychiatric Symptoms Stated Complaint: SI Time Seen by Provider: 11/20/20 11:53 History of Present Illness: HPI Narrative: The patient is a 45-year-old female with past medical history of borderline personality disorder and depression who comes to the ER complaining of suicidal ideations. She says she has been feeling more depressed lately and felt like cutting her arm still she bleeds to yesterday and today. Her sister brought her in to get her help. She has not injured herself. The patient has ulcerative colitis with history of colectomy and ileostomy in the right lower quadrant. She also has a left abd ominal wound which is chronic and not bothering her today. She previously took an SSRI but quit taking it on her own. She admits to alcohol abuse. Denies withdrawal symptoms. She has chronic seizure disorder as well. 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 MD complaint: suicidal ideation and feels depressed Duration: constant History of same: Yes Relieving factors: none Context: recent alcohol abuse, not taking psychiatric medications and significant life stressor Associated psychiatric symptoms: depression and suicidal ideation Associated symptoms: Reports depression and suicidal ideation If self harm: admits thoughts of self harm and has plan Review of Systems General: Reports: 10 or more systems reviewed and unremarkable except in HPI and below Const: Denies: fatigue Eyes: Denies: change in vision, blurry vision or eye redness ENMT: Denies: throat pain, swelling of lips/tongue, ear or mastoid pain or nasal congestion Card: Denies: chest pain, palpitations, irregular heart rhythm, edema, dyspnea on exertion or orthopnea Resp: Denies: dyspnea, productive cough or non-productive cough GI: Reports: abdominal pain (Mild chronic abdominal pain related to her ileostomy); Denies: diarrhea or GI cramping : Denies: flank pain, difficulty voiding, urinary frequency or urinary urgency Musc: Denies: neck pain, back pain, extremity pain, joint pain, joint redness, limited range of motion or muscle weakness Skin/Breast: Denies: rash, pruritus, erythema, skin pain or skin tenderness Neuro: Denies: headache(s), numbness in extremities, weakness in extremities, sensory changes, difficulty walking, dizziness, confusion or Slurred speech present Psych: Reports: depression and suicidal ideation Endo: Denies: polyuria All/Imm: Denies: urticaria, throat swelling or tongue swelling PFSH ED PFSH: Medical History (Updated 11/20/20 @ 15:44 by Clemente Da Silva MD) Bartholin's cyst Crohn's disease Ileostomy in place Surgical History History of appendectomy Hx of tonsillectomy Social History Smoking and tobacco status: current every day smoker Physical Exam Const: COMMON NORMALS: no acute distress, average body habitus, patient oriented x3, no limitations, alert and well nourished GENERAL APPEARANCE: cooperative, comfortable, well kempt and well developed ORIENTATION/CONSCIOUSNESS: Yes awake, Yes oriented to person, Yes oriented to place and Yes oriented to time OTHER: Depressed and tearful HENMT: COMMON NORMALS: normocephalic, external ears normal and Normal external nose present HEAD & SCALP: normal to inspection and normocephalic NOSE: Normal external nose present EXTERNAL EAR: Yes external ears normal MOUTH: Normal oral and palatal mucosa present THROAT: posterior oropharynx normal Eye: COMMON NORMALS: Equal, round and reactive pupils present and EOMs intact bilaterally GENERAL EYE: appearance normal, both eyes and all related structures PUPIL: Yes Equal, round and reactive pupils present Neck/C-Spine: COMMON NORMALS: full ROM, no lymphadenopathy, no meningeal signs and no JVD GENERAL: Yes normal visual inspection Lymph: LYMPHATIC: no lymphadenopathy noted Chest: COMMONS NORMALS: normal inspection of the chest and normal palpation of entire chest wall Resp: COMMON NORMALS: normal respiratory effort, No retractions, No use of accessory muscles, clear to auscultation bilaterally and percussion normal EFFORT & INSPECTION: Yes able to speak in complete sentences AUSCULTATION: clear to auscultation bilaterally PERCUSSION: percussion normal Cardio: COMMON NORMALS: no JVD, regular rate, regular rhythm, S1 normal heart sound present, S2 normal heart sound present and Peripheral pulses 2+ throughout RATE: regular rate RHYTHM: regular rhythm HEART SOUNDS: S1 normal heart sound present and S2 normal heart sound present PERIPHERAL PULSES: Peripheral pulses 2+ throughout GI: COMMON NORMALS: Normal to inspection, nondistended, normoactive bowel sounds present, Soft to palpation and no masses INSPECTION: Yes normal to inspection PALPATION: Yes Soft to palpation OTHER: The patient has a right lower quadrant ileostomy which has mild associated tenderness. She says this is her normal amount of tenderness. Left lower quadrant small 2 cm wound which is chronic. Not draining or tender. : COMMON NORMALS: Yes no CVA tenderness BLADDER/KIDNEY EXAM: Yes no CVA tenderness Back/Pelvis: COMMON NORMALS: no CVA tenderness, thoracic and lumbar spine normal to inspection, no thoracic nor lumbar tenderness and thoraco-lumbar ROM normal Extremity: COMMON NORMALS: normal to inspection, full ROM, capillary refill normal, no joint enlargement and no pedal edema GENERAL: Yes normal exam except as noted Neuro: COMMON NORMALS: patient oriented x3, CN's II-XII intact bilaterally, moves all extremities, no focal motor deficits, no sensory deficits noted and gait normal SENSORIUM/ORIENTATION: Yes alert, Yes oriented to person, Yes oriented to place and Yes oriented to time MENINGEAL SIGNS: Yes no meningeal signs Psych: COMMON NORMALS: mental status grossly normal, Normal thought process present, cooperative, normal affect and speech normal APPEARANCE: Yes well kempt ATTITUDE: Yes calm SPEECH: Yes normal speech THOUGHT PROCESS: Normal thought process present Skin: COMMON NORMALS: no rashes or lesions noted GENERAL SKIN EXAM: no rashes or lesions noted Course Vital Signs: Vital signs: Vital Signs Temperature 98.6 F 11/20/20 11:54 Pulse Rate 138 H 11/20/20 11:54 Respiratory Rate 18 11/20/20 11:54 Blood Pressure 132/99 11/20/20 11:54 Pulse Oximetry 96 11/20/20 11:54 MDM - Psych MDM Narrative: Medical decision making narrative: The patient is a 45-year-old female with borderline personality disorder who comes to the ER complaining of suicidal ideations with plan to cut herself. She has cut herself in the past many times and has many scars on both of her arms. She tried to leave so I filled out the 96-hour hold paperwork. Discussed with Dr. Chapman who accepts for admission Lab Data: Labs: Lab Results 11/20/20 11/20/20 11/20/20 Range/Units 12:30 12:30 12:51 WBC 11.3 H (4.0-10.0) 10^3/ uL RBC 4.82 (4.1-5.3) 10^6/u L Hgb 15.8 H (11.5-15.3) g/dL Hct 46.7 (37.0-47.0) % MCV 96.9 (81-99) fL MCH 32.8 (28.0-34.0) pg MCHC 33.8 (30.0-36.0) g/dL RDW 12.8 (12.1-15.1) % Plt Count 247 (130-400) 10^3/c mm MPV 9.7 (7.4-10.4) fL Neut % (Auto) 58.1 % Lymph % (Auto) 33.8 % [place] % (Auto) 5.0 % Eos % (Auto) 2.4 % Baso % (Auto) 0.4 % Neut # (Auto) 6.57 (1.8-7.7) 10^3/u L Lymph # (Auto) 3.8 (0.8-4.8) 10^3/u L [place] # (Auto) 0.6 (0.2-0.9) 10^3/u L Eos # (Auto) 0.3 (0.0-0.8) 10^3/u L Baso # (Auto) 0.0 (0.0-0.1) 10^3/u L Nucleated RBC % (a uto) 0 % Nucleated RBCs # 0.0 /100WBC Sodium 140 (136-145) mmol/L Potassium 3.8 (3.5-5.1) mmol/L Chloride 101 (98-107) mmol/L Carbon Dioxide 17 L (22-29) mmol/L Anion Gap 25.8 H (5-19) BUN 9 (6-20) mg/dL Creatinine 0.4 L (0.5-0.9) mg/dL GFR Calculation 171.8 H (90-130) mL/min Glucose 101 (65-115) mg/dL Calculated Osmolal ity 289 (285-295) mOsm/k g Calcium 9.3 (8.5-10.5) mg/dL Total Bilirubin 0.3 (0.15-1.2) mg/dL AST 27 (0-32) U/L ALT 21 (0-33) U/L Alkaline Phosphata se 136 H (35-105) IU/L Total Protein 7.9 (6.6-8.7) g/dL Albumin 4.8 (3.5-5.2) g/dL Globulin 3.1 (1.3-4.6) g/dL TSH 1.48 (0.27-4.20) uIU/ mL HCG, Qual Negative (Negative) Urine Color (Yellow) Urine Appearance (CLEAR) Urine pH (5-7) Ur Specific Gravit y (1.005-1.030) Urine Protein (Negative) Urine Glucose (UA) (Normal) Urine Ketones (Negative) Urine Blood (Negative) Urine Nitrate (Negative) Urine Bilirubin (Negative) Urine Urobilinogen (Negative) mg/dL Ur Leukocyte Michelle ase (Negative) Urine RBC (0-2) /hpf Urine WBC (0-5) /hpf Ur Squamous Epith Cells (0-5) /hpf Amorphous Sediment Urine Bacteria (NONE) /hpf Salicylates < 0.3 L (3-10) mg/dL Urine Opiates Scre en (Negative) ng/mL Acetaminophen < 5.0 L (10-30) ug/mL Ur Barbiturates Sc reen (Negative) ng/mL Ur Phencyclidine S crn (Negative) ng/mL Ur Amphetamines Sc reen (Negative) ng/mL U Benzodiazepines Scrn (Negative) ng/mL Urine Cocaine Scre en (Negative) ng/mL U Marijuana (THC) Screen (Negative) ng/mL Ethyl Alcohol 246 H (0-10) mg/dL 11/20/20 11/20/20 Range/Units 12:51 12:51 WBC (4.0-10.0) 10^3/ uL RBC (4.1-5.3) 10^6/u L Hgb (11.5-15.3) g/dL Hct (37.0-47.0) % MCV (81-99) fL MCH (28.0-34.0) pg MCHC (30.0-36.0) g/dL RDW (12.1-15.1) % Plt Count (130-400) 10^3/c mm MPV (7.4-10.4) fL Neut % (Auto) % Lymph % (Auto) % [place] % (Auto) % Eos % (Auto) % Baso % (Auto) % Neut # (Auto) (1.8-7.7) 10^3/u L Lymph # (Auto) (0.8-4.8) 10^3/u L [place] # (Auto) (0.2-0.9) 10^3/u L Eos # (Auto) (0.0-0.8) 10^3/u L Baso # (Auto) (0.0-0.1) 10^3/u L Nucleated RBC % (a uto) % Nucleated RBCs # /100WBC Sodium (136-145) mmol/L Potassium (3.5-5.1) mmol/L Chloride (98-107) mmol/L Carbon Dioxide (22-29) mmol/L Anion Gap (5-19) BUN (6-20) mg/dL Creatinine (0.5-0.9) mg/dL GFR Calculation (90-130) mL/min Glucose (65-115) mg/dL Calculated Osmolal ity (285-295) mOsm/k g Calcium (8.5-10.5) mg/dL Total Bilirubin (0.15-1.2) mg/dL AST (0-32) U/L ALT (0-33) U/L Alkaline Phosphata se (35-105) IU/L Total Protein (6.6-8.7) g/dL Albumin (3.5-5.2) g/dL Globulin (1.3-4.6) g/dL TSH (0.27-4.20) uIU/ mL HCG, Qual (Negative) Urine Color Straw (Yellow) Urine Appearance Clear (CLEAR) Urine pH 5 (5-7) Ur Specific Gravit y 1.005 (1.005-1.030) Urine Protein Trace (Negative) Urine Glucose (UA) Norm (Normal) Urine Ketones Negative (Negative) Urine Blood 2+ H (Negative) Urine Nitrate Negative (Negative) Urine Bilirubin Neg (Negative) Urine Urobilinogen Norm (Negative) mg/dL Ur Leukocyte Michelle ase Negative (Negative) Urine RBC 0-4 H (0-2) /hpf Urine WBC 0-4 H (0-5) /hpf Ur Squamous Epith Cells 10-15 H (0-5) /hpf Amorphous Sediment Not Reportable Urine Bacteria Trace (NONE) /hpf Salicylates (3-10) mg/dL Urine Opiates Scre en Negative (Negative) ng/mL Acetaminophen (10-30) ug/mL Ur Barbiturates Sc reen Negative (Negative) ng/mL Ur Phencyclidine S crn Negative (Negative) ng/mL Ur Amphetamines Sc reen Negative (Negative) ng/mL U Benzodiazepines Scrn Negative (Negative) ng/mL Urine Cocaine Scre en Negative (Negative) ng/mL U Marijuana (THC) Screen Positive H (Negative) ng/mL Ethyl Alcohol (0-10) mg/dL Discharge Plan Discharge Patient Disposition: Admitted As Inpatient Admit Provider: Dieudonne Chapman Clinical Impression: Suicidal ideation Condition: Stable Coding Level of Care Code ED 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
--- NOTE | 2020-11-20 12:34 | ECG_ITS ---
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1975 Requested By: Clemente Da Silva Order Number: [id number] Yoli MD: MARIA M ROMAN Measurements Intervals [place] Rate: 105 P: 77 SD: 164 QRS: 51 QRSD: 86 T: 36 QT: 335 QTc: 444 Interpretive Statements SINUS TACHYCARDIA INDETERMINATE AXIS POSSIBLE RIGHT VENTRICULAR CONDUCTION DELAY [RSR (QR) IN V1/V2] MODERATE T-WAVE ABNORMALITY, CONSIDER ANTERIOR ISCHEMIA [-0.1+ mV T WAVE IN V3/V4] Compared to ECG 03/29/2019 17:26:20 T-wave abnormality now present Possible ischemia now present Sinus bradycardia no longer present Electronically Signed On 11-20-2020 21:19:40 CDT by MARIA M ROMAN [id number] f
[2020-11-20 12:38] LABS: Basophils % 0.4 %; Eosinophils # 0.3 10^3/uL (0.0-0.8); Eosinophils % 2.4 %; Hematocrit 46.7 % (37.0-47.0); Hemoglobin 15.8 g/dL (11.5-15.3); Lymphocytes # 3.8 10^3/uL (0.8-4.8); Lymphocytes % 33.8 %; Mean Corpuscular HGB Conc 33.8 g/dL (30.0-36.0); Mean Corpuscular Hemoglobin 32.8 pg (28.0-34.0); Mean Corpuscular Volume 96.9 fL (81-99); Mean Platelet Volume 9.7 fL (7.4-10.4); Monocytes # 0.6 10^3/uL (0.2-0.9); Neutrophils # 6.57 10^3/uL (1.8-7.7); Neutrophils % 58.1 %; Nucleated Red Blood Cells % 0 %; Platelet Count 247 10^3/cmm (130-400); Red Blood Count 4.82 10^6/uL (4.1-5.3); Red Cell Distribution Width 12.8 % (12.1-15.1); White Blood Count 11.3 10^3/uL (4.0-10.0)
[2020-11-20 12:56] LABS: Add Urine Microscopic? YES; Bilirubin Urine Neg (Negative); Blood Urine 2+ (Negative); Glucose Urine UA Norm (Normal); Ketones Urine Negative (Negative); Leukocyte Esterase Urine Negative (Negative); Nitrate Urine Negative (Negative); Protein Urine Trace (Negative); Specific Gravity, Urine 1.005 (1.005-1.030); Urine Appearance Clear (CLEAR); Urine Color Straw (Yellow); Urobilinogen Urine Norm (Negative); pH Urine 5 (5-7)
[2020-11-20 12:58] LABS: HCG Qualitative Urine. Negative (Negative)
[2020-11-20 13:04] LABS: Add Urine Culture? No; Bacteria Urine TRACE /hpf; RBC Urine 0-4 /hpf (0-2); WBC Urine 0-4 /hpf (0-5)
[2020-11-20 13:05] LABS: Amphetamines Screen Urine Negative (Negative); Barbiturates Screen Urine Negative (Negative); Benzodiazepines Screen Urine Negative (Negative); Cocaine Screen Urine Negative (Negative); Opiate Screen Urine Negative (Negative); PCP Screen Urine Negative (Negative); THC Screen Urine Positive (Negative)
[2020-11-20 13:06] LABS: Alanine Aminotransferase 21 U/L (0-33); Albumin Level 4.8 g/dL (3.5-5.2); Alcohol Level 246 mg/dL (0-10); Alkaline Phosphatase 136 IU/L (35-105); Anion Gap 25.8 (5-19); Aspartate Amino Transferase 27 U/L (0-32); Blood Urea Nitrogen 9 mg/dL (6-20); Calcium 9.3 mg/dL (8.5-10.5); Carbon Dioxide 17 mmol/L (22-29); Chloride 101 mmol/L (98-107); Globulin 3.1 g/dL (1.3-4.6); Glomerular Filtration Rate 171.8 mL/min (90-130); Glucose 101 mg/dL (65-115); Osmolality Calculated 289 mOsm/kg (285-295); Potassium 3.8 mmol/L (3.5-5.1); Sodium 140 mmol/L (136-145); Thyroid Stimulating Hormone 1.48 uIU/mL (0.27-4.20); Total Bilirubin 0.3 mg/dL (0.15-1.2); Total Protein 7.9 g/dL (6.6-8.7)
[2020-11-20 13:08] LABS: Acetaminophen < 5.0 ug/mL (10-30); Salicylate < 0.3 mg/dL (3-10)
[2020-11-20] MEDS: iohexol 300 mg/mL 100 mL Btl IV (13:11)
[2020-11-20] MEDS: LORazepam 1 mg Tablet PO (13:29)
--- NOTE | 2020-11-20 13:31 | PC.NURSE ---
pt becoming more anxious and agitated. pt states she wants to go home. ed physician in room to speak with pt. anti anxiety medication given
[2020-11-20] MEDS: nicotine 21 mg Patch 1 PATCH TRANSDERMA (14:42)
--- NOTE | 2020-11-20 14:44 | PC.NURSE ---
pt loudly shouting and banging on the bed and on the wall. pt states that she does not want to be kept here anymore and she is going to leave. security notified. pt's ER physician in room to speak with her. Pt was able to be verbally de-escalated
[2020-11-20 18:01] VITALS: BP 111/77; PULSE 123; RESP 18; TEMP 36.7; O2SAT 94
[2020-11-20] MEDS: hyDROXYzine 25 mg Capsule 50 MG PO (18:28)
--- NOTE | 2020-11-20 18:28 | PC.NURSE ---
PRN VISTARIL 50 MG GIVEN PO PER PT C/O ANXIETY. NEW ADMIT, IRRITABLE, ISOLATIVE TO ROOM. TOOK MEDS WITHOUT INCIDENT. WILL CONT TO MONITOR.
[2020-11-20 19:51] VITALS: PULSE 112; RESP 18; O2SAT 95
[2020-11-20] MEDS: OLANZapine 5 mg ODT PO (20:43)
[2020-11-20] MEDS: trazodone 50 mg Tablet PO (21:05)
[2020-11-20 21:45] VITALS: BP 122/76; PULSE 100; RESP 20; TEMP 36.8; O2SAT 98
--- NOTE | 2020-11-20 23:45 | PC.NURSE ---
prn 2042 administered Zyprexa Zydis 5mg PO for severe anxiety, Pt stated I feel like I'm losing it 2104 administered trazadone 50 mg PO for a sleeping aid, will continue to monitor pt until end of shift 2129 reassessed pt, laying in bed resting 2141 reassessed pt, sleeping on right side, will continue to monitor pt until end of shift
--- NOTE | 2020-11-21 00:17 | PC.NURSE ---
BAL 246, +THC The patient is a 45-year-old female with past medical history of borderline personality disorder and depression who comes to the ER complaining of suicidal ideations. Pt states that she has a hx of heavy drinking and sometimes gets violent when intoxicated. Pt is a smoker currently smokes 1 ? daily. She says she has been feeling more depressed lately and felt like cutting her arms till she bleeds to yesterday and today. Her sister brought her in to get her help. She has not injured herself. The patient has ulcerative colitis with history of colectomy and ileostomy in the right lower quadrant. She also has a left abdominal wound which is chronic and not bothering her today. She previously took an SSRI but quit taking it on her own. She admits to alcohol abuse. Denies withdrawal symptoms. She has chronic seizure disorder as well. 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 complaint: suicidal ideation and feels depressed Since pt has been on the unit she has had anxiety and asked for meds to help calm her down.
[2020-11-21 05:50] VITALS: BP 107/69; PULSE 99; RESP 18; TEMP 36.7; O2SAT 97
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
[2020-11-21] MEDS: folic acid 1 mg Tablet PO (08:21)
[2020-11-21] MEDS: multivitamin therapeutic Tablet 1 TAB PO (08:21)
[2020-11-21] MEDS: thiamine 100 mg Tablet PO (08:21)
[2020-11-21 08:35] VITALS: PULSE 143; RESP 18; O2SAT 97
[2020-11-21] MEDS: nicotine 21 mg Patch 1 PATCH TRANSDERMA (12:39)
[2020-11-21] MEDS: hyDROXYzine 25 mg Capsule 50 MG PO (13:19)
[2020-11-21] MEDS: escitalopram 10 mg Tablet PO (13:20)
[2020-11-21 14:00] VITALS: BP 107/68; PULSE 100; RESP 18; TEMP 37.1; O2SAT 96
[2020-11-21 20:09] VITALS: BP 101/66; PULSE 87; RESP 17; TEMP 36.7; O2SAT 98
[2020-11-21] MEDS: trazodone 50 mg Tablet PO (20:50)
[2020-11-21] MEDS: BuSPIRONE 10 mg Tablet 15 MG PO (20:50)
--- NOTE | 2020-11-21 20:55 | PC.NURSE ---
pt requested her sleeping pill , Trazodone 50mg po given.
--- NOTE | 2020-11-21 22:00 | PC.NURSE ---
pt noted to be resting quietly with bo5th eyes closed.
[2020-11-21 22:32] VITALS: PULSE 81; RESP 16; O2SAT 96
[2020-11-22 06:00] VITALS: BP 110/74; PULSE 102; RESP 17; TEMP 36.6; O2SAT 97
[2020-11-22] MEDS: thiamine 100 mg Tablet PO (09:05)
[2020-11-22] MEDS: escitalopram 10 mg Tablet PO (09:05)
[2020-11-22] MEDS: BuSPIRONE 10 mg Tablet 15 MG PO ×2 (09:05→20:28)
[2020-11-22] MEDS: multivitamin therapeutic Tablet 1 TAB PO (09:05)
[2020-11-22] MEDS: folic acid 1 mg Tablet PO (09:05)
[2020-11-22] MEDS: acetaminophen 325 mg Tablet 650 MG PO ×2 (09:11→14:08)
[2020-11-22 09:18] VITALS: PULSE 90; RESP 16; O2SAT 98
[2020-11-22] MEDS: nicotine 21 mg Patch 1 PATCH TRANSDERMA (13:45)
[2020-11-22 14:00] VITALS: BP 120/73; PULSE 116; RESP 20; TEMP 36.9; O2SAT 97
--- NOTE | 2020-11-22 14:48 | PM.CONSULT ---
Providers/Reason For Consult Consulting Physican/Specialty*: psychiatry Reason for Consult*: chrons flare Attending Physician: Dieudonne Chapman MD Primary Care Provider: Cesilia Schneider MD History of Present Illness History of Present Illness Stephani Fitzgerald is a 45 year old female with a past medical history of Crohn's disease, status post ileostomy, currently not undergoing any treatment, follows up with [facility], has had multiple exacerbations in the last few months was treated with steroids and hydrocodone, who presents to [facility] as admission for suicidal ideation. Hospitalist team was consulted due to complaints of abdominal pain, related to Crohn's flare. Patient tells me that she currently is not under treatment for Crohn's disease, is not on any immunotherapy, the last time she saw her physician at [facility] was roughly a year ago. No increased output, no bloody or black stools, no fevers, no chills Review of Systems Const: Denies: fever(s) ENMT: Reports: throat pain Card: Denies: chest pain Resp: Denies: dyspnea GI: Reports: abdominal pain; Denies: nausea or vomiting : Denies: flank pain Meds/Allergies Home Medications and Allergies Home Medications Medication Instructions Recorded Confirmed Last Taken Type albuterol sulfate [ProAir HFA] 2 puff INHALATION QID PRN 11/12/19 11/20/20 10/31/20 History Allergies Allergy/AdvReac Type Severity Reaction Status Date / Time ciprofloxacin [From Cipro] Allergy Unknown Verified 04/20/20 17:20 Current Medications Current Medications Generic Name Dose Route Start Last Admin Trade Name Xuq PRN Reason Stop Dose Admin Acetaminophen 650 mg 11/20/20 18:01 11/22/20 14:08 Acetaminophen 325 Mg Tablet PO 650 mg Q4H PRN Administration MILD PAIN Buspirone HCl 15 mg 11/21/20 21:00 11/22/20 09:05 Buspirone 10 Mg Tablet PO 15 mg Q12H SMITHA Administration Escitalopram Oxalate 10 mg 11/21/20 12:50 11/22/20 09:05 Escitalopram 10 Mg Tablet PO 10 mg DAILY SMITHA Administration Folic Acid 1 mg 11/21/20 09:00 11/22/20 09:05 Folic Acid 1 Mg Tablet PO 1 mg DAILY SMITHA Administration Hydroxyzine Pamoate 50 mg 11/20/20 18:01 11/21/20 13:19 Hydroxyzine 25 Mg Capsule PO 50 mg Q6H PRN Administration ANXIETY Multivitamins Therapeutic 1 tab 11/21/20 09:00 11/22/20 09:05 Multivitamin Therapeutic Tablet PO 1 tab DAILY SMITHA Administration Nicotine 1 patch 11/20/20 18:01 11/22/20 13:45 Nicotine 21 Mg Patch TRANSDERMA 1 patch DAILY PRN Administration NICOTINE WITHDRAWAL Olanzapine 5 mg 11/20/20 18:01 11/20/20 20:43 Olanzapine 5 Mg Odt PO 5 mg Q4H PRN Administration Agitation/Psychosis Thiamine Mononitrate 100 mg 11/21/20 09:00 11/22/20 09:05 Thiamine 100 Mg Tablet PO 100 mg DAILY SMITHA Administration PFSH Acute PFSH: Medical History (Updated 11/22/20 @ 14:52 by Royer Haque MD) Bartholin's cyst Crohn's disease Ileostomy in place Surgical History History of appendectomy Hx of tonsillectomy Social History Smoking and tobacco status: current every day smoker Vitals/I&O/Wt Last Vital Signs Temp 97.8 F 11/22/20 06:00 Pulse 90 11/22/20 09:18 Resp 16 11/22/20 09:18 BP 110/74 11/22/20 06:00 Pulse Ox 98 11/22/20 09:18 Weight last 48 hrs Weight 57.606 kg Physical Exam Const: COMMON NORMALS: patient oriented x3 HENMT: COMMON NORMALS: normocephalic HEAD & SCALP: normocephalic Eye: COMMON NORMALS: Equal, round and reactive pupils present, EOMs intact bilaterally and no papilledema GENERAL EYE: appearance normal, both eyes and all related structures PUPIL: Yes Equal, round and reactive pupils present DIRECT OPHTHALMOSCOPY: Yes no papilledema Resp: COMMON NORMALS: normal respiratory effort, No retractions and No use of accessory muscles Cardio: COMMON NORMALS: regular rate, regular rhythm, S1 normal heart sound present and S2 normal heart sound present RATE: regular rate RHYTHM: regular rhythm HEART SOUNDS: S1 normal heart sound present and S2 normal heart sound present GI: COMMON NORMALS: Normal to inspection, nondistended, normoactive bowel sounds present and Soft to palpation PALPATION: Yes Soft to palpation Extremity: COMMON NORMALS: normal to inspection Neuro: COMMON NORMALS: patient oriented x3, CN's II-XII intact bilaterally, moves all extremities and no focal motor deficits Psych: COMMON NORMALS: mental status grossly normal, Normal thought process present and cooperative THOUGHT PROCESS: Normal thought process present A&P Assessment and plan (1) Crohn disease: - cbc, cmp, esr, crp -prednisone 60mg qd with protonix -norco [id number] prn for pain -monitor for worsening anxiety -needs to follow up with gi as outpatient -will follow along for response Status: Acute Coding Level of Care Code Acute Chief Deputy Clerk/Bailiff for Lev Grullon Diagnoses Crohn disease K50.90
[2020-11-22] MEDS: predniSONE 20 mg Tablet 60 MG PO (15:12)
[2020-11-22] MEDS: pantoprazole DR 40 mg Tablet PO (15:12)
[2020-11-22] MEDS: HYDROcodone-acetaminophen 5-325 mg Tablet 1 TAB PO (15:12)
[2020-11-22] MEDS: hyDROXYzine 25 mg Capsule 50 MG PO (17:25)
[2020-11-22 18:11] LABS: Basophils % 0.2 %; Eosinophils # 0.1 10^3/uL (0.0-0.8); Eosinophils % 0.8 %; Hematocrit 40.3 % (37.0-47.0); Hemoglobin 13.7 g/dL (11.5-15.3); Lymphocytes # 0.7 10^3/uL (0.8-4.8); Mean Corpuscular Hemoglobin 33.4 pg (28.0-34.0); Mean Corpuscular Volume 98.3 fL (81-99); Mean Platelet Volume 10.5 fL (7.4-10.4); Monocytes # 0.2 10^3/uL (0.2-0.9); Monocytes % 1.8 %; Neutrophils # 7.52 10^3/uL (1.8-7.7); Neutrophils % 88.8 %; Nucleated Red Blood Cells % 0 %; Platelet Count 158 10^3/cmm (130-400); Red Cell Distribution Width 12.6 % (12.1-15.1); White Blood Count 8.5 10^3/uL (4.0-10.0)
--- NOTE | 2020-11-22 18:29 | PC.NURSE ---
PRN Vistaril/Anxiety 1725-Patient at nurses station reporting new steroid treatment of Prednisone is making her anxiety slightly increased. Requesting PRN anxiety medication at this time. Vistaril 50mg PO given at this time. 1830- anxiety does appear to have improved as patient is resting in room quietly with no complaints
[2020-11-22 18:31] LABS: Alanine Aminotransferase 16 U/L (0-33); Albumin Level 4.5 g/dL (3.5-5.2); Alkaline Phosphatase 120 IU/L (35-105); Anion Gap 18.5 (5-19); Aspartate Amino Transferase 20 U/L (0-32); Blood Urea Nitrogen 19 mg/dL (6-20); Calcium 9.1 mg/dL (8.5-10.5); Carbon Dioxide 20 mmol/L (22-29); Chloride 99 mmol/L (98-107); Globulin 1.7 g/dL (1.3-4.6); Glomerular Filtration Rate 90.1 mL/min (90-130); Glucose 187 mg/dL (65-115); Osmolality Calculated 283 mOsm/kg (285-295); Potassium 4.5 mmol/L (3.5-5.1); Sodium 133 mmol/L (136-145); Total Bilirubin 0.3 mg/dL (0.15-1.2); Total Protein 6.2 g/dL (6.6-8.7)
--- NOTE | 2020-11-22 18:53 | PM.NPN ---
Subjective NPU Subjective: Interval history: Stephani presents today denying any significant issues with having her Lexapro restarted and initiating the new medication. Her complaints were mostly of comorbid medical issues. Specifically endorsing history of Crohn's with a feeling of a flareup was going on and having pain. We discussed the risk benefits and alternatives of getting consult given that she was between GI doctors. We agreed we would use their expertise in dealing with any issues. Mental Status Exam MSE Comments: This is a well-nourished, well-developed white female with hospital scrubs on with limited grooming and eye contact. No abnormal movements except for mild psychomotor retardation. Cooperative with exam in mild distress. Speech was decreased rate and volume. Mood described as depressed and anxious but less angry, affect subdued. Thought process organized. Thought content: Patient denied homicidal ideation but did endorse suicidal ideation, there were no delusions noted but she did endorse paranoia, she denied any auditory or visual hallucinations currently. Attention and concentration were intact and memory appeared reliable but none were formally tested. She is alert and oriented x3. Insight and judgment appear fair, impulse control is limited. Vitals/I&O/Wt Last Vital Signs Temp 97.5 F L 11/22/20 20:45 Pulse 78 11/22/20 20:45 Resp 15 11/22/20 20:45 BP 115/70 11/22/20 20:45 Pulse Ox 94 11/22/20 20:45 Weight last 48 hrs Weight 57.606 kg Data NPU : 11/22/20 17:50 11/22/20 17:50 A&P Additional A&P Information (1) History of borderline personality disorder: (2) Major depressive disorder: (3) Anxiety: (4) Suicidal ideation: Additional A&P Information This is a 45-year-old white female with a long history of trauma and mental health issues with some treatment with addiction challenges throughout her life who presents with depression, suicidality, anxiety and significant alcohol use endorsing an openness to restarting medications. 1. Continue current medication. 2. Continue every 15 minute checks for safety. 3. Encourage individual, group and milieu therapies. 4. Encourage sober living treatment after discharge at the highest level of care to which he is willing to commit. 5. Appreciate hospitalist consult, will await any additional recommendations. Involuntary Hold Information 96 Hour Hold: 96 Hour Involuntary Admission: Yes 96 Hour Hold Ending Date: 11/26/20 96 Hour Hold Ending Time: 15:00 Attestations NPU Medical Necessity Statement*: Inpatient hospitalization is medically necessary and the clinically appropriate intervention at this time. We will monitor medications and make changes as indicated. Likely length of stay 2-4 days. Coding Level of Care Code Acute Person Investigator for Lev Grullon
[2020-11-22 19:18] LABS: Erythrocyte Sedimentation Rate 16 mm/hr (0-15)
[2020-11-22] MEDS: trazodone 50 mg Tablet PO (20:29)
--- NOTE | 2020-11-22 20:30 | PC.NURSE ---
pt asked for sleeping med be given with her night meds. Trazodone 50mg po given.
[2020-11-22 20:45] VITALS: BP 115/70; PULSE 78; RESP 15; TEMP 36.4; O2SAT 94
--- NOTE | 2020-11-22 21:38 | PC.NURSE ---
Pt in room resting quietly with both eyes closed.
[2020-11-23 00:40] VITALS: PULSE 84; RESP 16; O2SAT 97
[2020-11-23] MEDS: HYDROcodone-acetaminophen 5-325 mg Tablet 1 TAB PO ×2 (05:31→18:46)
[2020-11-23 05:43] VITALS: BP 140/78; PULSE 129; RESP 14; TEMP 36.5; O2SAT 98
[2020-11-23] MEDS: predniSONE 20 mg Tablet 60 MG PO (08:45)
[2020-11-23] MEDS: escitalopram 10 mg Tablet PO (08:45)
[2020-11-23] MEDS: pantoprazole DR 40 mg Tablet PO (08:45)
[2020-11-23] MEDS: multivitamin therapeutic Tablet 1 TAB PO (08:45)
[2020-11-23] MEDS: folic acid 1 mg Tablet PO (08:45)
[2020-11-23] MEDS: thiamine 100 mg Tablet PO (08:45)
[2020-11-23] MEDS: BuSPIRONE 10 mg Tablet 15 MG PO ×2 (08:45→21:31)
--- NOTE | 2020-11-23 10:30 | PM.NPN ---
Subjective NPU Subjective: Interval history: Stephani presents today reporting that she is doing okay. Or in her words she does not at all but she is hurting really bad. She that she did get the steroid and that there is a plan with her and the hospitalist as to how to manage her pain. We did begin to discuss discharge and talk to her about wanting to make sure to contract for safety prior to discharge. She reports that she feels she is doing a little better with medication and I encouraged her to try the propranolol if she was having any intense anxiety. We discussed follow-up both with medical comorbidities and her psychiatric signs being a critical part of having comfort in her going possibly tomorrow. Mental Status Exam MSE Comments: This is a well-nourished, well-developed white female with hospital scrubs on with limited grooming and eye contact. No abnormal movements except for mild psychomotor retardation. Cooperative with exam in no acute distress. Speech was decreased rate and volume. Mood described as a little better I guess, affect subdued. Thought process organized. Thought content: Patient denied homicidal ideation but did endorse suicidal ideation, there were no delusions noted but she did endorse less paranoia, she denied any auditory or visual hallucinations currently. Attention and concentration were intact and memory appeared reliable but none were formally tested. She is alert and oriented x3. Insight and judgment appear fair, impulse control is limited. Vitals/I&O/Wt Last Vital Signs Temp 97.7 F 11/23/20 05:43 Pulse 129 H 11/23/20 05:43 Resp 14 11/23/20 05:43 BP 140/78 11/23/20 05:43 Pulse Ox 98 11/23/20 05:43 Weight last 48 hrs Weight 57.606 kg Data NPU : 11/22/20 17:50 11/22/20 17:50 A&P Assessment and plan (1) Borderline personality disorder: Status: Acute Additional A&P Information (2) Major depressive disorder: (3) Anxiety: (4) Suicidal ideation: Additional A&P Information This is a 45-year-old white female with a long history of trauma and mental health issues with some treatment with addiction challenges throughout her life who presents with depression, suicidality, anxiety and significant alcohol use endorsing an openness to restarting medications. 1. Continue current medication. 2. Continue every 15 minute checks for safety. 3. Encourage individual, group and milieu therapies. 4. Encourage sober living treatment after discharge at the highest level of care to which he is willing to commit. 5. Appreciate hospitalist consult, will await any additional recommendations. Involuntary Hold Information 96 Hour Hold: 96 Hour Involuntary Admission: Yes 96 Hour Hold Ending Date: 11/26/20 96 Hour Hold Ending Time: 15:00 Attestations NPU Medical Necessity Statement*: Inpatient hospitalization is medically necessary and the clinically appropriate intervention at this time. We will monitor medications and make changes as indicated. Likely length of stay 1-3 days. Coding Level of Care Code Acute Software Engineering Manager for g Fwd Diagnoses Borderline personality disorder F60.3
[2020-11-23 13:10] VITALS: BP 136/81; PULSE 89; RESP 16; TEMP 36.7; O2SAT 97
[2020-11-23] MEDS: nicotine 21 mg Patch 1 PATCH TRANSDERMA (13:34)
[2020-11-23] MEDS: propranolol 20 mg Tablet PO (13:53)
--- NOTE | 2020-11-23 13:56 | PC.NURSE ---
Addendum entered by LYLE Ibrahim 11/23/20 14:47: PRN Medication follow-up. Patient states she is feeling a little better. PRN medication effective. Nurse will continue to monitor. Original Note: Propranolol 20 mg administered for patient C/O increasing anxiety. Nurse will monitor for medication effectiveness.
--- NOTE | 2020-11-23 18:17 | PC.RESP ---
Smoking Cessation information sent to patient.
[2020-11-23 19:44] VITALS: PULSE 81; RESP 16; O2SAT 97
[2020-11-23 20:03] VITALS: BP 107/64; PULSE 84; RESP 16; TEMP 36.4; O2SAT 98
[2020-11-23] MEDS: acetaminophen 325 mg Tablet 650 MG PO (21:31)
[2020-11-23] MEDS: trazodone 50 mg Tablet PO (21:31)
[2020-11-24] MEDS: nicotine 2 mg Gum BUCCAL (05:44)
[2020-11-24 06:00] VITALS: BP 117/74; PULSE 72; RESP 15; TEMP 36.3; O2SAT 97
[2020-11-24] MEDS: HYDROcodone-acetaminophen 5-325 mg Tablet 1 TAB PO (06:43)
[2020-11-24] MEDS: predniSONE 20 mg Tablet 60 MG PO (08:21)
[2020-11-24] MEDS: escitalopram 10 mg Tablet PO (08:21)
[2020-11-24] MEDS: thiamine 100 mg Tablet PO (08:21)
[2020-11-24] MEDS: BuSPIRONE 10 mg Tablet 15 MG PO (08:21)
[2020-11-24] MEDS: pantoprazole DR 40 mg Tablet PO (08:21)
--- NOTE | 2020-11-24 08:30 | PC.SOCIAL ---
*IMM* Was placed in the patients belongings. Did not DC yesterday.
[2020-11-24] MEDS: nicotine 21 mg Patch 1 PATCH TRANSDERMA (09:16)
[2020-11-24 10:13] VITALS: PULSE 72; RESP 15; O2SAT 97
[2020-11-24] MEDS: acetaminophen 325 mg Tablet 650 MG PO (12:35)
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
[2020-11-24 12:47] VITALS: PULSE 72; RESP 15; O2SAT 97
--- NOTE | 2020-11-25 15:00 | PC.NURSE ---
11/25/[address] [facility] pharmacy called to verify Prednisone Rx. Per VORB to Dr. Chapman Rx should be Prednisone 60mg daily for 15 days with 1 refill. Spoke to Becky at [facility] in [facility] [phone] to verify.
== END 2020-11-24 13:18 | disposition home or self-care (01) | DRG 881 ==
LOC: ER 13:19 → NP 15:19
PROVIDERS: Family Medicine; Admitting Provider Psychiatry & Neurology Psychiatry; Emergency Provider Family Medicine; PCP Internal Medicine; Visit Provider Psychiatry & Neurology Psychiatry
DX: F32.9 Major depressive disorder, single episode, unspecified (principal); R45.851 Suicidal ideations; K50.90 Crohn's disease, unspecified, without complications; F60.3 Borderline personality disorder; Z90.49 Acquired absence of other specified parts of digestive tract; Z93.2 Ileostomy status; F10.10 Alcohol abuse, uncomplicated; G40.909 Epilepsy, unspecified, not intractable, without status epilepticus; F17.210 Nicotine dependence, cigarettes, uncomplicated; F12.10 Cannabis abuse, uncomplicated; F41.9 Anxiety disorder, unspecified; Z91.14 Patient's other noncompliance with medication regimen; Z81.8 Family history of other mental and behavioral disorders; M06.9 Rheumatoid arthritis, unspecified
CPT/HCPCS: 74177; 80053; 80306; 80307; 81001; 81025; 84443; 85025; 85651; 86140; 93005; J7512; Q9967

== ENCOUNTER → 2020-12-22 08:23 | Outpatient (BNVA) | payer MEDICAID, SELFPAY | PROVIDERS: PCP Internal Medicine; Visit Provider Nurse Practitioner Psychiatric/Mental Health | DX: F32.9 Major depressive disorder, single episode, unspecified (principal); F60.3 Borderline personality disorder; F41.9 Anxiety disorder, unspecified; F12.10 Cannabis abuse, uncomplicated | CPT/HCPCS: 99214 ==

== ENCOUNTER 2022-08-14 23:34 | Emergency (ER) | payer MEDICAID, SELFPAY ==
[2022-08-14 23:35] VITALS: BP 92/75; PULSE 49; RESP 16; TEMP 36.4; O2SAT 97; BMI 24.5
--- NOTE | 2022-08-14 23:50 | PC.NURSE ---
Pt follows commands. 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 Lower extremity strength strong and equal. PERRLA
--- NOTE | 2022-08-15 | CTR_ITS ---
PROCEDURE INFORMATION: Exam: CT Head Without Contrast Exam date and time: 08/15/2022 12:21 AM Age: 46 years old Clinical indication: Injury or trauma; Fall; Blunt trauma (contusions or hematomas); Consciousness not specified; Additional info: Fall, syncope TECHNIQUE: Imaging protocol: Computed tomography of the head without contrast. Radiation optimization: All CT scans at this facility use at least one of these dose optimization techniques: automated exposure control; mA and/or kV adjustment per patient size (includes targeted exams where dose is matched to clinical indication); or iterative reconstruction. Other protocol: This patient has received 0 known CTs and 0 known cardiac nuclear medicine studies in the 12 months prior to the current study. COMPARISON: CT head wo con* [id number] 03/29/2019 12:29 PM RADIATION DOSE METRICS: Total DLP (mGy-cm): 1106.18 FINDINGS: Brain: Normal. No hemorrhage. Unremarkable white matter. No mass effect. Cerebral ventricles: No ventriculomegaly. Paranasal sinuses: Visualized sinuses are unremarkable. No fluid levels. Mastoid air cells: Small right mastoid effusion. Bones/joints: Unremarkable. No acute fracture. Soft tissues: Unremarkable. CT/CT head wo con* [id number] IMPRESSION: No acute intracranial abnormality.
--- NOTE | 2022-08-15 | CTR_ITS ---
PROCEDURE INFORMATION: Exam: CT Cervical Spine Without Contrast Exam date and time: 08/15/2022 12:24 AM Age: 46 years old Clinical indication: Injury or trauma; Fall; Blunt trauma; Additional info: Fall, neck pain TECHNIQUE: Imaging protocol: Computed tomography of the cervical spine without contrast. Radiation optimization: All CT scans at this facility use at least one of these dose optimization techniques: automated exposure control; mA and/or kV adjustment per patient size (includes targeted exams where dose is matched to clinical indication); or iterative reconstruction. Other protocol: This patient has received [address] and 0 known cardiac nuclear medicine studies in the 12 months prior to the current study. COMPARISON: CT angio headneck* [id number] 02/26/2019 5:33 PM RADIATION DOSE METRICS: Total DLP (mGy-cm): 173.77 FINDINGS: Bones/joints: The cervical spine is straightened which may be positional or related to spasm. Near anatomic alignment. No acute fracture. Multilevel degenerative changes are present. No severe spinal canal stenosis. Lungs: Lung apices are normal. Soft tissues: Unremarkable. CT/CT cervical spin wo con* [id number] IMPRESSION: No acute osseous injury.
--- NOTE | 2022-08-15 | ECG_ITS ---
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 Measurements Intervals [place] Rate: 45 P: 67 [place]: 164 QRS: 56 QRSD: 94 T: 52 QT: 480 QTc: 415 Interpretive Statements SINUS BRADYCARDIA LOW QRS VOLTAGE IN PRECORDIAL LEADS [QRS DEFLECTION < 1.0 mV IN CHEST LEADS] POSSIBLE RIGHT VENTRICULAR CONDUCTION DELAY [RSR (QR) IN V1/V2] Compared to ECG 11/20/2020 12:47:41 Low QRS voltage now present Sinus tachycardia no longer present Indeterminate axis no longer present T-wave abnormality no longer present Possible ischemia no longer present Electronically Signed On 08-15-2022 8:52:08 WATER TREATMENT PLANT OPERATOR by Akil Pacheco M.D. [id number]
[2022-08-15] MEDS: sodium chloride 0.9% 500 ML IV (00:13)
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
[2022-08-15 01:52] LABS: Basophils % 0.1 %; Hematocrit 36.8 % (37.0-47.0); Hemoglobin 11.8 g/dL (11.5-15.3); Lymphocytes # 1.3 10^3/uL (0.8-4.8); Mean Corpuscular HGB Conc 32.1 g/dL (30.0-36.0); Mean Corpuscular Hemoglobin 34.3 pg (28.0-34.0); Mean Platelet Volume 10.8 fL (7.4-10.4); Monocytes # 0.4 10^3/uL (0.2-0.9); Monocytes % 6.3 %; Neutrophils # 4.95 10^3/uL (1.8-7.7); Neutrophils % 73.9 %; Nucleated Red Blood Cells % 0 %; Platelet Count 143 10^3/cmm (130-400); Red Blood Count 3.44 10^6/uL (4.1-5.3); Red Cell Distribution Width 12.6 % (12.1-15.1); White Blood Count 6.7 10^3/uL (4.0-10.0)
[2022-08-15 02:05] LABS: INR 0.98 (0.8-1.2)
[2022-08-15 02:10] LABS: Alanine Aminotransferase 13 U/L (0-33); Albumin Level 3.8 g/dL (3.5-5.2); Alcohol Level 154 mg/dL (0-10); Alkaline Phosphatase 124 U/L (35-105); Anion Gap 13.7 (5-19); Aspartate Amino Transferase 13 U/L (0-32); Blood Urea Nitrogen 11 mg/dL (6-20); Calcium 8.2 mg/dL (8.5-10.5); Carbon Dioxide 23 mmol/L (22-29); Chloride 107 mmol/L (98-107); Glomerular Filtration Rate 238.5 mL/min (90-130); Glucose 100 mg/dL (65-115); Osmolality Calculated 289 mOsm/kg (285-295); Potassium 3.7 mmol/L (3.5-5.1); Sodium 140 mmol/L (136-145); Total Bilirubin 0.2 mg/dL (0.15-1.2); Total Protein 5.8 g/dL (6.6-8.7)
== END 2022-08-15 01:35 | disposition left against medical advice (07) ==
PROVIDERS: Emergency Provider Emergency Medicine; PCP Internal Medicine
DX: S06.0X9A Concussion with loss of consciousness of unspecified duration, initial encounter (principal); F10.129 Alcohol abuse with intoxication, unspecified; Y90.6 Blood alcohol level of 120-199 mg/100 ml; Y04.2XXA Assault by strike against or bumped into by another person, initial encounter; F17.210 Nicotine dependence, cigarettes, uncomplicated; Z93.2 Ileostomy status
CPT/HCPCS: 70450; 72125; 80053; 80307; 83735; 85025; 85610; 93005; 96360; 99285; J7040

== ENCOUNTER 2023-02-24 14:44 | Emergency (ER) | payer MEDICAID, SELFPAY ==
[2023-02-24 14:53] VITALS: BP 122/75; PULSE 73; RESP 18; O2SAT 96; BMI 23.8
--- NOTE | 2023-02-24 14:53 | XR_ITS ---
WS: [id number] EXAMINATION: XR chest 1V portable [id number] REASON FOR EXAM: depression, anxiety COMPARISON: 03/29/2019 ORDER DATE: 02/24/2023 2:53 PM TECHNIQUE: A single, portable frontal chest x-ray was obtained. X-RAY FINDINGS: The lungs are clear. Pleural spaces are clear. No pleural effusions or pneumothorax. Cardiomediastinal silhouette is normal. No evidence for pulmonary edema. Soft tissue and osseous structures are unremarkable. No tubes or lines are present. IMPRESSION: Unremarkable frontal portable chest x-ray.
[2023-02-24 15:10] LABS: Basophils # 0.1 10^3/uL (0.0-0.1); Basophils % 0.6 %; Eosinophils # 0.8 10^3/uL (0.0-0.8); Eosinophils % 5.1 %; Hematocrit 44.4 % (36-47); Lymphocytes # 4.3 10^3/uL (0.8-4.8); Lymphocytes % 26.9 %; Mean Corpuscular HGB Conc 33.8 g/dL (30-55); Mean Corpuscular Volume 94.7 fl (85-98); Mean Platelet Volume 9.3 fL (7.4-10.4); Monocytes # 0.9 10^3/uL (0.2-0.9); Monocytes % 5.7 %; Neutrophils # 9.75 10^3/uL (1.8-7.7); Neutrophils % 61.1 %; Nucleated Red Blood Cells % 0 %; Platelet Count 294 10^3/cmm (157-399); Red Blood Count 4.69 10^6/uL (3.85-5.65); Red Cell Distribution Width 14.8 % (12.1-15.1); White Blood Count 15.96 10^3/uL (3.29-11.43)
--- NOTE | 2023-02-24 15:20 | PC.PHAR ---
VERIFIED CURRENT MED LIST WITH [facility]. UNABLE TO VERIFY WITH PATIENT.
[2023-02-24 15:27] LABS: Alanine Aminotransferase 22 U/L (0-33); Albumin Level 4.7 g/dL (3.5-5.2); Alkaline Phosphatase 137 U/L (35-105); Anion Gap 16.2 (5-19); Aspartate Amino Transferase 27 U/L (0-32); Blood Urea Nitrogen 13 mg/dL (6-20); Calcium 9.4 mg/dL (8.5-10.5); Carbon Dioxide 20 mmol/L (22-29); Chloride 106 mmol/L (98-107); Globulin 2.6 g/dL (1.3-4.6); Glomerular Filtration Rate 76.6 mL/min (90-130); Glucose 115 mg/dL (65-115); Osmolality Calculated 287 mOsm/kg (285-295); Potassium 4.2 mmol/L (3.5-5.1); Sodium 138 mmol/L (136-145); Total Bilirubin 0.3 mg/dL (0.15-1.2); Total Protein 7.3 g/dL (6.6-8.7)
[2023-02-24 15:28] LABS: Acetaminophen < 5.0 ug/mL (10-30); Alcohol Level < 10 mg/dL (0-10); Salicylate < 0.3 mg/dL (3-10)
[2023-02-24 15:30] LABS: Ketone (Acetest) Serum Negative (Negative)
--- NOTE | 2023-02-24 15:32 | ED.C_ITS ---
HPI - Psych General: Chief Complaint: Psychiatric Symptoms Stated Complaint: etoh, possible psych Time Seen by Provider: 02/24/23 14:48 History of Present Illness: Reports to the ER by EMS for erratic behavior. EMS said patient was drinking alcohol and took a couple gulps of rubbing alcohol. Patient is denying suicidal and homicidal ideations at this moment. Patient does admit to being depressed and having anxiety. Patient does admit to drinking 1 gulp of rubbing alcohol because it was there. Patient will not elaborate on the subject anymore. Review of Systems General: Reports: 10 or more systems reviewed and unremarkable except in HPI and below PFSH ED PFSH: Medical History Anxiety disorder, unspecified severe anxiety, always scared the world is going to fall down, very troubled marriage, to a narcissist, diagnosed with BPD, have Crohn disease, agorophobia, cannot go out in public, get very nervous, seems like I have a perfect storm of imperfect things, my marriage seems unstable, poor self confidence, I can be really impulsive at times, do not know why; recently in the hospital for suicidal thoughts, mood swings; get angry really easily, irritable. Bartholin's cyst Cannabis abuse, uncomplicated Crohn's disease Ileostomy in place Surgical History History of appendectomy Hx of tonsillectomy Social History Smoking and tobacco status: current every day smoker Physical Exam Const: COMMON NORMALS: no acute distress, average body habitus, patient oriented x3, no limitations, healthy appearing, alert and well nourished HENMT: COMMON NORMALS: normocephalic, atraumatic, hearing grossly normal bilaterally, external ears normal, Normal external nose present and moist oral mucous membranes HEAD & SCALP: normocephalic and atraumatic NOSE: Normal external nose present EXTERNAL EAR: Yes external ears normal Eye: COMMON NORMALS: Equal, round and reactive pupils present, EOMs intact bilaterally, conjunctivae normal and no scleral icterus CONJUNCTIVA: Yes conjunctivae normal PUPIL: Yes Equal, round and reactive pupils present Neck/C-Spine: COMMON NORMALS: full ROM, no lymphadenopathy, supple, no menin geal signs, no JVD and Thyroid normal THYROID: Thyroid normal Lymph: LYMPHATIC: no lymphadenopathy noted and no lymphedema noted Chest: COMMONS NORMALS: normal inspection of the chest and normal palpation of entire chest wall Resp: COMMON NORMALS: normal respiratory effort, No retractions, No use of accessory muscles and clear to auscultation bilaterally AUSCULTATION: clear to auscultation bilaterally Cardio: COMMON NORMALS: no JVD, regular rate, regular rhythm, S1 normal heart sound present, S2 normal heart sound present, No gallops present (Cardio), No clicks present (Cardio), No murmurs present (Cardio) and No rub (Cardio) RATE: regular rate RHYTHM: regular rhythm HEART SOUNDS: S1 normal heart sound present and S2 normal heart sound present GI: COMMON NORMALS: Normal to inspection, nondistended, normoactive bowel sounds present, Soft to palpation, non-tender, No hepatosplenomegaly present and no masses PALPATION: Yes Soft to palpation and Yes No hepatosplenomegaly present : COMMON NORMALS: Yes no CVA tenderness BLADDER/KIDNEY EXAM: Yes no CVA tenderness Back/Pelvis: COMMON NORMALS: no CVA tenderness Neuro: COMMON NORMALS: patient oriented x3 SENSORIUM/ORIENTATION: Yes alert MENINGEAL SIGNS: Yes no meningeal signs Course Vital Signs: Vital signs: Vital Signs Pulse Rate 59 L 02/24/23 16:12 Respiratory Rate 18 02/24/23 14:53 Blood Pressure 122/75 02/24/23 14:53 Pulse Oximetry 99 02/24/23 16:12 Oxygen Delivery Me thod Room Air 02/24/23 16:12 [facility] - Psych Medical Decision Making She decided to leave AMA Differential Diagnosis Likely bipolar disorder, depression and acute anxiety; Unlikely acute psychosis, chronic schizophrenia, suicidal ideation or drug-induced psychotic disorder Medical Records I reviewed the patient's medical records. Lab Data I reviewed the patient's lab results. 02/24/23 15:02 02/24/23 15:02 Laboratory Results WBC 15.96 10^3/uL (3.29-11.43) H 02/24/23 15:02 RBC 4.69 10^6/uL (3.85-5.65) 02/24/23 15:02 Hgb 15.00 g/dL (11.27-16.99) 02/24/23 15:02 Hct 44.4 % (36-47) 02/24/23 15:02 MCV 94.7 fl (85-98) 02/24/23 15:02 MCH 32.0 pg (27-33) 02/24/23 15:02 MCHC 33.8 g/dL (30-55) 02/24/23 15:02 RDW 14.8 % (12.1-15.1) 02/24/23 15:02 Plt Count 294 10^3/cmm (157-399) 02/24/23 15:02 MPV 9.3 fL (7.4-10.4) 02/24/23 15:02 Neut % (Auto) 61.1 % 02/24/23 15:02 Lymph % (Auto) 26.9 % 02/24/23 15:02 Pope % (Auto) 5.7 % 02/24/23 15:02 Eos % (Auto) 5.1 % 02/24/23 15:02 Baso % (Auto) 0.6 % 02/24/23 15:02 Neut # (Auto) 9.75 10^3/uL (1.8-7.7) H 02/24/23 15:02 Lymph # (Auto) 4.3 10^3/uL (0.8-4.8) 02/24/23 15:02 Pope # (Auto) 0.9 10^3/uL (0.2-0.9) 02/24/23 15:02 Eos # (Auto) 0.8 10^3/uL (0.0-0.8) 02/24/23 15:02 Baso # (Auto) 0.1 10^3/uL (0.0-0.1) 02/24/23 15:02 Nucleated RBC % (auto) 0 % 02/24/23 15:02 Nucleated RBCs # 0.0 /100WBC 02/24/23 15:02 Specimen Type Arterial 02/24/23 15:30 Sample Site Brachial, right 02/24/23 15:30 ABG pH 7.41 (7.35-7.45) 02/24/23 15:30 ABG pCO2 33.3 mmHg (35-45) L 02/24/23 15:30 ABG pO2 95.7 mmHg (80.0-100.0) 02/24/23 15:30 ABG HCO3 21.2 mmol/L (22-26) L 02/24/23 15:30 ABG O2 Saturation 98.5 02/24/23 15:30 ABG Base Excess -2.6 mmol/L (-2.0-2.0) L 02/24/23 15:30 Luis Manuel Test N/a 02/24/23 15:30 A-a O2 Gradient 1.5 mmHg (5-10) L 02/24/23 15:30 Hematocrit 47.9 % (37-47) H 02/24/23 15:30 Hgb O2 Saturation 92.3 % (95-100) L 02/24/23 15:30 Carboxyhemoglobin 6.2 %THgb (0.4-20.1) 02/24/23 15:30 Methemoglobin 0.1 % (0.4-1.5) L 02/24/23 15:30 Total Hemoglobin 15.6 g/dL (12-16) 02/24/23 15:30 Sodium 143.0 mmol/L (131-143) 02/24/23 15:30 Potassium 4.3 mmol/L (3.5-5.0) 02/24/23 15:30 Glucose 116.0 mg/dL (70-115) H 02/24/23 15:30 Ionized Calcium 1.3 mmol/L (1.1-1.4) 02/24/23 15:30 O2 Delivery Device Room air 02/24/23 15:30 FiO2 21.0 % 02/24/23 15:30 Integrated Logistics Support Manager ID [email or web address] 02/24/23 15:30 Sodium 138 mmol/L (136-145) 02/24/23 15:02 Potassium 4.2 mmol/L (3.5-5.1) 02/24/23 15:02 Chloride 106 mmol/L (98-107) 02/24/23 15:02 Carbon Dioxide 20 mmol/L (22-29) L 02/24/23 15:02 Anion Gap 16.2 (5-19) 02/24/23 15:02 BUN 13 mg/dL (6-20) 02/24/23 15:02 Creatinine 0.8 mg/dL (0.5-0.9) 02/24/23 15:02 GFR Calculation 76.6 mL/min (90-130) L 02/24/23 15:02 Glucose 115 mg/dL (65-115) 02/24/23 15:02 Calculated Osmolality 287 mOsm/kg (285-295) 02/24/23 15:02 Calcium 9.4 mg/dL (8.5-10.5) 02/24/23 15:02 Total Bilirubin 0.3 mg/dL (0.15-1.2) 02/24/23 15:02 AST 27 U/L (0-32) 02/24/23 15:02 ALT 22 U/L (0-33) 02/24/23 15:02 Alkaline Phosphatase 137 U/L (35-105) H 02/24/23 15:02 Total Protein 7.3 g/dL (6.6-8.7) 02/24/23 15:02 Albumin 4.7 g/dL (3.5-5.2) 02/24/23 15:02 Globulin 2.6 g/dL (1.3-4.6) 02/24/23 15:02 Salicylates < 0.3 mg/dL (3-10) L 02/24/23 15:02 Acetaminophen < 5.0 ug/mL (10-30) L 02/24/23 15:02 Ethyl Alcohol < 10 mg/dL (0-10) 02/24/23 15:02 Serum Ketones Negative (Negative) 02/24/23 15:02 Discharge Plan Discharge Patient Disposition: Left Against Medical Advice Clinical Impression: Left against medical advice Condition: Stable Prescriptions: No Action escitalopram oxalate 20 mg tablet 20 mg PO DAILY Qty: 30 0RF Rx Instructions: Take 1 tablet every morning (after completion of 10 mg tablets) propranolol 20 mg Tablet 20 mg PO TID PRN (Reason: Anxiety) 30 Days Qty: 90 1RF trazodone 50 mg tablet 50 mg PO BEDTIME Referrals: Cesilia Schneider MD [Primary Care Provider] - 1 week Patient Instructions: Against Medical Advice (ED) Activity Restrictions/Additional Instructions: Please follow-up with your primary care doctor within the next week for further evaluation and treatment. Coding Level of Care Code ED Pole Framer Machine for Lev Grullon
[2023-02-24 15:42] LABS: ABG PCO2 33.3 mmHg (35-45); ABG PH Result 7.41 (7.35-7.45); Alveolar-Arterial Oxygen Gradi 1.5 mmHg (5-10); Arterial Blood Gas Hematocrit 47.9 % (37-47); Base Excess ABG -2.6 mmol/L (-2.0-2.0); Blood Gas Operator Identificat glc; Blood Gas Sample Site Brachial, right; Blood Gas Sample Type Arterial; Carboxyhemoglobin 6.2 %THgb (0.4-20.1); HCO3 ABG 21.2 mmol/L (22-26); HGB O2 Sat 92.3 % (95-100); Ionized Calcium Level - ABG 1.3 mmol/L (1.1-1.4); Methemoglobin 0.1 % (0.4-1.5); Oxygen Device ROOM AIR; Oxygen Saturation ABG 98.5; PO2 ABG 95.7 mmHg (80.0-100.0); Potassium Level - ABG 4.3 mmol/L (3.5-5.0); Total Hemoglobin 15.6 g/dL (12-16)
[2023-02-24 16:12] VITALS: PULSE 59; O2SAT 99
== END 2023-02-24 16:12 | disposition left against medical advice (07) ==
PROVIDERS: Emergency Provider Emergency Medicine; PCP Internal Medicine
DX: Z53.21 Procedure and treatment not carried out due to patient leaving prior to being seen by health care provider (principal)
CPT/HCPCS: 36415; 36600; 71045; 80051; 80053; 80307; 82009; 82330; 82805; 85025; 99284

== ENCOUNTER 2023-02-24 17:34 | Inpatient (IN) | payer MEDICAID, SELFPAY ==
[2023-02-24 17:38] VITALS: BP 127/75; PULSE 75; RESP 16; TEMP 36.7; O2SAT 98; BMI 25.6
--- NOTE | 2023-02-24 18:00 | W.ED.PSYCHS ---
HPI - Psych General: Chief Complaint: Psychiatric Symptoms Stated Complaint: came back Time Seen by Provider: 02/24/23 17:43 History of Present Illness: To the ER after leaving AGAINST MEDICAL ADVICE earlier. Patient is expressing that she drank an unknown amount of rubbing alcohol and attempt to end her life. And admitting that she has thoughts of self-harm. Patient denies these claims earlier. Lab work was all performed earlier. Patient left and went to the crisis center and came back. Review of Systems General: Reports: 10 or more systems reviewed and unremarkable except in HPI and below PFSH ED PFSH: Medical History Anxiety disorder, unspecified severe anxiety, always scared the world is going to fall down, very troubled marriage, to a narcissist, diagnosed with BPD, have Crohn disease, agorophobia, cannot go out in public, get very nervous, seems like I have a perfect storm of imperfect things, my marriage seems unstable, poor self confidence, I can be really impulsive at times, do not know why; recently in the hospital for suicidal thoughts, mood swings; get angry really easily, irritable. Bartholin's cyst Cannabis abuse, uncomplicated Crohn's disease Ileostomy in place Surgical History History of appendectomy Hx of tonsillectomy Social History Smoking and tobacco status: current every day smoker Physical Exam Const: COMMON NORMALS: no acute distress, average body habitus, patient oriented x3, no limitations, healthy appearing, alert and well nourished HENMT: COMMON NORMALS: normocephalic, atraumatic, hearing grossly normal bilaterally, external ears normal, Normal external nose present and moist oral mucous membranes HEAD & SCALP: normocephalic and atraumatic NOSE: Normal external nose present EXTERNAL EAR: Yes external ears normal Eye: COMMON NORMALS: Equal, round and reactive pupils present, EOMs intact bilaterally, conjunctivae normal and no scleral icterus CONJUNCTIVA: Yes conjunctivae normal PUPIL: Yes Equal, round and reactive pupils present Neck/C-Spine: COMMON NORMALS: full ROM, no lymphadenopathy, supple, no meningeal signs, no JVD and Thyroid normal THYROID: Thyroid normal Lymph: LYMPHATIC: no lymphadenopathy noted Chest: COMMONS NORMALS: normal inspection of the chest and normal palpation of entire chest wall Resp: COMMON NORMALS: normal respiratory effort, No retractions, No use of accessory muscles and clear to auscultation bilaterally AUSCULTATION: clear to auscultation bilaterally Cardio: COMMON NORMALS: no JVD, regular rate, regular rhythm, S1 normal heart sound present, S2 normal heart sound present, No gallops present (Cardio), No clicks present (Cardio), No murmurs present (Cardio) and No rub (Cardio) RATE: regular rate RHYTHM: regular rhythm HEART SOUNDS: S1 normal heart sound present and S2 normal heart sound present GI: COMMON NORMALS: Normal to inspection, nondistended, normoactive bowel sounds present, Soft to palpation, non-tender, No hepatosplenomegaly present and no masses PALPATION: Yes Soft to palpation and Yes No hepatosplenomegaly present : COMMON NORMALS: Yes no CVA tenderness BLADDER/KIDNEY EXAM: Yes no CVA tenderness Back/Pelvis: COMMON NORMALS: no CVA tenderness Neuro: COMMON NORMALS: patient oriented x3 SENSORIUM/ORIENTATION: Yes alert MENINGEAL SIGNS: Yes no meningeal signs Course Vital Signs: Vital signs: Vital Signs Temperature 98.0 F 02/24/23 17:38 Pulse Rate 75 02/24/23 17:38 Respiratory Rate 16 02/24/23 17:38 Blood Pressure 127/75 02/24/23 17:38 Pulse Oximetry 98 02/24/23 17:38 Oxygen Delivery Me thod Room Air 02/24/23 17:38 MDM - Psych Medical Decision Making Patient return to the ER after leaving AMA from an earlier visit where she stated she was not suicidal. Patient now decided she is suicidal. Lab work was obtained from the earlier visit Dr. Chapman was consulted and agreed to accept the patient for admission to [facility] for further evaluation and testing. Differential Diagnosis Likely suicidal ideation; Unlikely acute psychosis, chronic schizophrenia, bipolar disorder, depression, drug-induced psychotic disorder or acute anxiety Medical Records I reviewed the patient's medical records. Lab Data I reviewed the patient's lab results. Viewed lab work from earlier today Discharge Plan Discharge Patient Disposition: Admitted As Inpatient Clinical Impression: Suicidal ideation Condition: Stable Coding Level of Care Code ED Mechanic Helper for Lev Grullon
[2023-02-24 20:08] VITALS: BP 97/65; PULSE 62; RESP 16; TEMP 36.7; O2SAT 96
[2023-02-24] MEDS: hyDROXYzine 25 mg Capsule 50 MG PO (20:47)
[2023-02-24] MEDS: LORazepam 2 mg Tablet PO (20:48)
[2023-02-24] MEDS: trazodone 50 mg Tablet PO (20:48)
--- NOTE | 2023-02-24 20:48 | PC.NURSE ---
Pt scored 16 on the CIWA scale. Pt was given 2mg po Ativan per CIWA protocol.
--- NOTE | 2023-02-24 22:34 | PC.NURSE ---
Pt arrived to [facility] w/RN and security at side. Pt is highly anxious, but is able to complete assessment. Pt does present w/illiostomy, sitter at bedside.
[2023-02-25 06:00] VITALS: BP 100/66; PULSE 98; RESP 18; O2SAT 98
[2023-02-25] MEDS: multivitamin therapeutic Tablet 1 TAB PO (10:28)
[2023-02-25] MEDS: escitalopram 10 mg Tablet 20 MG PO (10:28)
[2023-02-25] MEDS: folic acid 1 mg Tablet PO (10:29)
[2023-02-25] MEDS: thiamine 100 mg Tablet PO (10:29)
[2023-02-25 13:46] VITALS: BP 98/66; PULSE 65; RESP 18; TEMP 37.2; O2SAT 97
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
[2023-02-25 20:45] VITALS: BP 99/69; PULSE 112; RESP 16; TEMP 37.1; O2SAT 99
[2023-02-25] MEDS: trazodone 50 mg Tablet PO (20:47)
[2023-02-26 06:00] VITALS: RESP 16
[2023-02-26] MEDS: escitalopram 10 mg Tablet 20 MG PO (07:41)
[2023-02-26] MEDS: hyDROXYzine 25 mg Capsule 50 MG PO ×2 (07:41→16:05)
[2023-02-26] MEDS: nicotine 21 mg Patch 1 PATCH TRANSDERMA (07:41)
[2023-02-26] MEDS: multivitamin therapeutic Tablet 1 TAB PO (07:42)
[2023-02-26] MEDS: thiamine 100 mg Tablet PO (07:42)
[2023-02-26] MEDS: folic acid 1 mg Tablet PO (07:42)
--- NOTE | 2023-02-26 07:55 | PC.NURSE ---
During morning assessment, patient states that she doesn't feel like she is in crisis any longer. Patient states that she is experiencing depression because she is in here. Patient states that she feels trapped. patient reports anxiety that is severe . Patient denies SI, HI, and AVH. This nurse gave patient nicotine patch and vistaril, along with morning meds, and encouraged patient to ask if she needs anything, that we are here to help.
--- NOTE | 2023-02-26 08:20 | W.PM.NPUPNS ---
Subjective NPU Subjective: Patient presented today reporting that she is feeling better. She is feeling stupid about what she did the rubbing alcohol. She was compelled to get to her son and family does not feel that being here is helpful. We discussed Case being off and that he would make decisions about discharge in the next few days. Mental Status Exam MSE Comments: This is a well-nourished, well-developed white female with hospital scrubs on with limited grooming and eye contact. No abnormal movements except for mild psychomotor retardation. Cooperative with exam in mild distress. Speech was decreased rate and volume. Mood described as feeling stupid, affect subdued. Thought process organized. Thought content: Patient denied suicidal or homicidal ideation, there were no delusions noted but she did endorse paranoia, she denied any auditory or visual hallucinations currently. Attention and concentration were intact and memory appeared unreliable but none were formally tested. She is alert and oriented x3. Insight, judgment and impulse control are limited. Vitals/I&O/Wt Last Vital Signs Temp 98.4 F 02/26/23 21:58 Pulse 89 02/26/23 21:58 Resp 18 02/26/23 21:58 BP 97/72 02/26/23 21:58 Pulse Ox 99 02/26/23 21:58 O2 Del Method Room Air 02/26/23 14:00 02/26/23 02/26/23 02/27/23 14:59 22:59 06:59 Intake Total 720 / 720 Balance 720 / 720 Weight last 48 hrs Weight 57.606 kg A&P Assessment and plan (1) Alcohol use disorder, severe, dependence: (2) Cannabis abuse, uncomplicated: (3) Anxiety disorder, unspecified: (4) Borderline personality disorder: (5) Major depressive disorder: (6) Suicidal ideation: Plan This is a 47-year-old white female with a long history of trauma and mental health issues with some treatment with addiction challenges throughout her life who presents with a rubbing alcohol ingestion she denies was a suicide attempt seeking discharge sooner rather than later 1.? Continue current medication.? Consider increase Lexapro. 2.? Continue every 15 minute checks for safety. 3.? Encourage individual, group and milieu therapies. 4.? Encourage sober living treatment after discharge at the highest level of care to which he is willing to commit Involuntary Hold Information 96 Hour Hold: 96 Hour Involuntary Admission: No 96 Hour Hold Ending Date: 11/26/20 96 Hour Hold Ending Time: 15:00 Attestations NPU Medical Necessity Statement*: Inpatient hospitalization is medically necessary and the clinically appropriate intervention at this time. We will monitor medications and make changes as indicated. Likely length of stay 2-4 days. Coding Level of Care Code Acute Code for g Fwd Diagnoses Alcohol use disorder, severe, dependence F10.20 Cannabis abuse, uncomplicated F12.10 Anxiety disorder, unspecified F41.9 Borderline personality disorder F60.3 Major depressive disorder F32.9 Suicidal ideation R45.851
[2023-02-26] MEDS: ondansetron 4 MG Tablet PO (12:36)
[2023-02-26 14:00] VITALS: BP 104/75; PULSE 96; RESP 16; O2SAT 97
[2023-02-26] MEDS: trazodone 50 mg Tablet PO (20:24)
[2023-02-26 21:58] VITALS: BP 97/72; PULSE 89; RESP 18; TEMP 36.9; O2SAT 99
[2023-02-27] MEDS: hyDROXYzine 25 mg Capsule 50 MG PO (00:39)
--- NOTE | 2023-02-27 05:18 | PC.NURSE ---
Patient mostly isolated to her room this shift reading a book. She denies SI/HI/ AVH. She endorsed anxiety rated 9/10 and depression 2/10.She received PRN hydroxyzine for this. Patient plan is to be discharged home with supportive .
[2023-02-27 06:00] VITALS: RESP 16
[2023-02-27] MEDS: escitalopram 10 mg Tablet 20 MG PO (09:03)
[2023-02-27] MEDS: thiamine 100 mg Tablet PO (09:03)
[2023-02-27] MEDS: multivitamin therapeutic Tablet 1 TAB PO (09:03)
[2023-02-27] MEDS: folic acid 1 mg Tablet PO (09:03)
--- NOTE | 2023-02-27 09:03 | PC.NURSE ---
During morning assessment, patient stated that she is not fantastic . Patient stated that she is trying to keep her roommate calmed down. Patient denies SI, HI, and AVH. Patient is reporting anxiety. Patient calm and cooperative during assessment.
[2023-02-27] MEDS: OLANZapine 5 mg ODT PO ×2 (09:08→16:20)
[2023-02-27] MEDS: nicotine 21 mg Patch 1 PATCH TRANSDERMA (10:06)
[2023-02-27 14:00] VITALS: BP 103/68; PULSE 78; RESP 16; TEMP 36.9; O2SAT 100
--- NOTE | 2023-02-27 15:32 | W.PM.NPUPNS ---
Subjective NPU Subjective: Patient is a 47-year-old white female with borderline personality disorder and depression who had consumed rubbing alcohol in a possible suicide attempt who had reported that she felt that it was worse being here at this time as she states that she had been more stressed and stated that this problem with other people coughing on the unit would put her at risk of having a compromised immune system due to her Crohn's disease. She continued to isolate herself on the milieu. She reported no withdrawal symptoms from alcohol. The patient had reported that she wished to go home to be with her child who has special needs. She had continue to minimize the seriousness of her overdose and had no particular details to describe why she had initially left the emergency department AGAINST MEDICAL ADVICE and then later returned. She had reported having significant anxiety with being here in the hospital. Mental Status Exam MSE Comments: This is a well-nourished, well-developed white female with hospital scrubs on with limited grooming and eye contact. No abnormal movements except for moderate psychomotor retardation. Cooperative with exam in modest distress. Speech was normal in rate and volume. Mood described as fine. Her affect appeared somewhat restricted in range. Thought process was linear. Thought content: Patient denied suicidal or homicidal ideation, there were no delusions noted and she did not appear to be responding to internal stimuli. She denied any auditory or visual hallucinations currently. Attention and concentration were intact and memory appeared unreliable but none were formally tested. She is alert and oriented x3. Insight is poor. Her judgment is limited and impulse control are limited. Vitals/I&O/Wt Last Vital Signs Temp 98.5 F 02/27/23 14:00 Pulse 78 02/27/23 14:00 Resp 16 02/27/23 14:00 BP 103/68 02/27/23 14:00 Pulse Ox 100 02/27/23 14:00 O2 Del Method Room Air 02/26/23 14:00 Weight last 48 hrs Weight 57.606 kg A&P Assessment and plan (1) Alcohol use disorder, severe, dependence: (2) Cannabis abuse, uncomplicated: (3) Anxiety disorder, unspecified: (4) Borderline personality disorder: (5) Major depressive disorder: (6) Suicidal ideation: Plan This is a 47-year-old white female with a long history of trauma and mental health issues with some treatment with addiction challenges throughout her life who presents with a rubbing alcohol ingestion she denies was a suicide attempt seeking discharge sooner rather than later 1.? Continue Lexapro at 20mg in am. Continue Trazodone 50mg at night. Concern exists regarding patient minimizing the suicidality and minimizing use of alcohol. She would benefit from CBT routinely. 2.? Continue every 15 minute checks for safety. 3.? Encourage individual, group and milieu therapies. 4.? Encourage sober living treatment after discharge at the highest level of care to which he is willing to commit Involuntary Hold Information 96 Hour Hold: 96 Hour Involuntary Admission: No 96 Hour Hold Ending Date: 11/26/20 96 Hour Hold Ending Time: 15:00 Attestations NPU Medical Necessity Statement*: Inpatient hospitalization is medically necessary and the clinically appropriate intervention at this time. We will monitor medications and make changes as indicated. Likely length of stay 1-2 days. Coding Level of Care Code Acute Code for g Fwd Diagnoses Alcohol use disorder, severe, dependence F10.20 Cannabis abuse, uncomplicated F12.10 Anxiety disorder, unspecified F41.9 Borderline personality disorder F60.3 Major depressive disorder F32.9 Suicidal ideation R45.851
[2023-02-27] MEDS: trazodone 50 mg Tablet PO ×2 (20:14→20:53)
[2023-02-27 21:02] VITALS: BP 96/66; PULSE 87; RESP 16; TEMP 36.8; O2SAT 97
[2023-02-28 06:00] VITALS: BP 93/68; PULSE 95; RESP 17; O2SAT 98
[2023-02-28] MEDS: folic acid 1 mg Tablet PO (08:57)
[2023-02-28] MEDS: escitalopram 10 mg Tablet 20 MG PO (08:57)
[2023-02-28] MEDS: thiamine 100 mg Tablet PO (08:57)
[2023-02-28] MEDS: multivitamin therapeutic Tablet 1 TAB PO (08:57)
[2023-02-28 14:00] VITALS: BP 109/63; PULSE 85; RESP 16; O2SAT 95
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
[2023-02-28 15:11] VITALS: BP 109/63; PULSE 85; RESP 16; TEMP 36.8; O2SAT 95
== END 2023-02-28 15:54 | disposition home or self-care (01) | DRG 883 ==
LOC: ER 18:13 → NP 18:21
PROVIDERS: Admitting Provider Psychiatry & Neurology Psychiatry; Emergency Provider Emergency Medicine; PCP Internal Medicine; Visit Provider Psychiatry & Neurology Psychiatry
DX: F60.3 Borderline personality disorder (principal); R45.851 Suicidal ideations; Z62.810 Personal history of physical and sexual abuse in childhood; F32.A Depression, unspecified
CPT/HCPCS: 96372; 97165; 99238; 99285; J3411; Q0162